=== PATIENT | male | born 1940 | race Caucasian/White ===

== ENCOUNTER 2018-04-08 17:59 | Emergency (ER) | payer MEDICARE, OTHER, SELFPAY ==
[2018-04-08 18:12] VITALS: BP 165/75; PULSE 70; RESP 15; TEMP 36.7; O2SAT 99; BMI 22.8
[2018-04-08 19:04] VITALS: BP 137/86; PULSE 64; RESP 16; O2SAT 99
--- NOTE | 2018-04-09 02:54 | ED_ITS ---
HPI - Extremity Problem General Chief complaint: Extremity Problem,Nontraumatic Stated complaint: states rt arm hurting Time Seen by Provider: 04/08/18 18:19 Source: patient and family Mode of arrival: ambulatory Limitations: no limitations History of Present Illness HPI Narrative: Patient presents with chief complaint of right shoulder pain over the course of the day. He denies any specific injury but states he has been doing significant heavy lifting and wants a work on his lawn and in the garden at home. He denies numbness, tingling or weakness. He states his pain is severe, in the anterior shoulder and worse with range of motion. He denies any other neurologic symptoms such as blurred vision, trouble with speech or facial weakness. MD Complaint: extremity pain Onset (ago): hour(s) Pain Consistency: constant Location: right and upper extremity Severity scale (1-10): 5 Quality: burning, stabbing and aching Radiation: none Relieving factors: immobilization Exacerbating factors: range of motion Associated symptoms: denies other symptoms Related Data Home Medications Medication Instructions Recorded Confirmed calcium acetate 667 mg PO QDAY #0 12/16/16 glucosamine sulfate-msm 1 ea PO #0 12/16/16 hyalur ac-chond sul-colg II-AA 1 ea PO #0 12/16/16 [Hyaluronic Acid (chond-collgn)] levothyroxine 200 mcg PO QAM #0 12/16/16 magnesium oxide 400 mg PO #0 12/16/16 multivitamin [Multiple Vitamins] 1 tab PO QDAY #0 12/16/16 nortriptyline 25 mg PO HS #0 12/16/16 zinc gluconate 50 mg PO #0 12/16/16 Review of Systems Review of Systems All systems reviewed & are unremarkable except as noted in HPI and below Constitutional Denies chills, Denies fever(s), Denies lethargy and Denies weakness Eyes Denies change in vision, Denies eye discharge, Denies irritation and Denies loss of vision ENT Ears, Nose, Mouth, and Throat: Denies change in voice, Denies neck pain and Denies sore throat Cardiovascular Denies chest pain, Denies irregular heart rhythm, Denies lightheadedness, Denies palpitations, Denies dyspnea, Denies dyspnea on exertion and Denies orthopnea Respiratory Denies cough, Denies dyspnea, Denies dyspnea on exertion and Denies wheezing Gastrointestinal Gastrointestinal: Denies abdominal pain, Denies change in bowel habits, Denies diarrhea, Denies nausea and Denies vomiting Genitourinary Denies hematuria, Denies flank pain, Denies urinary incontinence and Denies urinary urgency Musculoskeletal Reports limited range of motion, Denies neck pain and Reports radiating pain into limb Integumentary/Breasts Denies pruritus, Denies erythema, Denies rash and Denies wounds Neurologic Denies confusion, Denies loss of vision and Denies weakness Psychiatric Denies anxiety, Denies confusion, Denies depression, Denies homicidal ideation and Denies suicidal ideation Endocrine Denies palpitations Hematologic/Lymphatic Denies easy bruising Allergic/Immunologic Denies wheezing PFSH Social History Smoking Status: Never smoker Exam Narrative Exam Narrative: 77-year-old male and mild distress, rubbing his right shoulder Initial Vital Signs Initial Vital Signs: Vital Signs Temperature 98.0 F 04/08/18 18:12 Pulse Rate 70 04/08/18 18:12 Respiratory Rate 15 04/08/18 18:12 Blood Pressure 165/75 H 04/08/18 18:12 Pulse Oximetry 99 04/08/18 18:12 Const General: cooperative and well developed Nutritional Appearance: well nourished Orientation: alert, awake, oriented x3 and not confused [facility] Head: normocephalic and atraumatic Ears: external ears normal and TM's normal bilaterally Nose: external nose normal and No nasal discharge Face and sinus: sinuses nontender, face symmetric, no sinus tenderness and No dry mucous membranes Mouth: oral mucosae normal and moist mucous membranes Teeth and gingiva: dentition normal Throat: tonsils normal and uvula midline Eyes General: appearance normal, both eyes and all related structures Eyelids: eyelids normal Conjunctivae: conjunctivae normal Sclera: sclerae normal Pupils: PERRL EOM: EOM intact bilaterally Neck Neck: normal visual inspection, full ROM, no meningeal signs, No midline deformity, No tender and No torticollis Chest Chest: normal inspection of the chest Resp Effort & Inspection: normal respiratory effort, able to speak in complete sentences, no respiratory distress and no use of accessory muscles Auscultation: clear to auscultation bilaterally, no rales, no rhonchi and no wheezes Cardio Rate: regular rate Rhythm: regular rhythm Heart Sounds: no click, no gallops, no murmurs and no rubs Pulses: normal peripheral pulses GI Inspection: non-distended Palpation: soft, no hepatosplenomegaly, No guarding, No pulsatile mass and No tender Auscultation: normal bowel sounds Back/Spine/Pelvis Back: No CVA tenderness Cervical Spine: cervical ROM normal and No pain with cervical ROM Thoracic/Lumbar Spine: thoracic and lumbar spine normal to inspection Neuro General: alert, awake and oriented x3 Cognition: normal cognition Speech: speech normal Gait: normal gait Motor: muscle tone normal throughout Sensory Exam: no sensory deficits noted Extrem Right upper extremity: shoulder/upper arm Details: tenderness and abnormal ROM; no lacerations, no ecchymosis, no penetrating wound, no deformity and no unusual warmth Psych Appearance: grossly normal and well kempt Mental Status: mental status grossly normal Course Vital Signs - 8 hr 04/08/18 19:04 Pulse Rate 64 Respiratory Rate 16 Blood Pressure 137/86 H Pulse Oximetry 99 Discharge Plan Departure Patient Disposition: Home, Self-Care Clinical Impression: Tendinopathy of right shoulder Discharge Date/Time: 04/08/18 19:06 Interventions: ED Discharge Assessment Last Done: 04/08/18 19:04 Instructions: DI for Shoulder Tendinopathy Activity Restrictions/Additional Instructions: *You have been diagnosed with [ shoulder tendinopathy ] *What to do: *Take medications as directed *Follow up with your primary care provider in 2-3 days *Return to ER if you should have any new, worsening or concerning symptoms Prescriptions: No Action levothyroxine 200 MCG tablet 200 mcg PO QAM Qty: 0 RF: 0 multivitamin [Multiple Vitamins] 1 EACH tablet 1 tab PO QDAY Qty: 0 RF: 0 nortriptyline 25 MG capsule 25 mg PO HS Qty: 0 RF: 0 glucosamine sulfate-msm 1 EACH capsule 1 ea PO Qty: 0 RF: 0 hyalur ac-chond sul-colg II-AA [Hyaluronic Acid (chond-collgn)] 1 EACH capsule 1 ea PO Qty: 0 RF: 0 magnesium oxide 400 MG tablet 400 mg PO Qty: 0 RF: 0 calcium acetate 667 MG capsule 667 mg PO QDAY Qty: 0 RF: 0 zinc gluconate 50 MG tablet 50 mg PO Qty: 0 RF: 0
== END 2018-04-08 19:06 | disposition home or self-care (01) ==
PROVIDERS: Emergency Provider Emergency Medicine; PCP Internal Medicine
DX: M67.921 Unspecified disorder of synovium and tendon, right upper arm (principal)
CPT/HCPCS: 99282

== ENCOUNTER → 2018-09-02 10:24 | Outpatient (CLI) | payer MEDICARE, OTHER, SELFPAY ==
--- NOTE | 2018-09-02 10:28 | DI.RAD.S_ITS ---
PROCEDURE: XR TOE RT MIN 2V INDICATIONS: Dropped heavy machinery on middle toe 6 weeks ago and is swollen TECHNIQUE: 3 views of the right toe(s) acquired. COMPARISON: None. FINDINGS: Bones: There is a subacute fracture of the middle phalanx of the 3rd toe seen on one image, with partial healing. No additional fractures are detected. No suspicious lytic or blastic lesions are seen. Soft tissues: No suspicious soft tissue densities. IMPRESSION: Subacute, healing fracture of the middle phalanx 3rd toe. Dictated by: Hilario Peralta M.D. on 09/02/2018 at 9:48 Approved by: Hilario Peralta M.D. on 09/02/2018 at 9:49
== END ==
PROVIDERS: PCP Internal Medicine; Visit Provider Physician Assistant
DX: S92.521D Displaced fracture of middle phalanx of right lesser toe(s), subsequent encounter for fracture with routine healing (principal); M79.674 Pain in right toe(s)
CPT/HCPCS: 73660

== ENCOUNTER → 2018-09-19 14:41 | Outpatient (CLI) | payer MEDICARE, OTHER, SELFPAY ==
--- NOTE | 2018-09-19 14:43 | DI.RAD.S_ITS ---
PROCEDURE: XR TOE RT MIN 2V INDICATIONS: pain in r toe TECHNIQUE: The views of the third toe(s) acquired. COMPARISON: [facility], , XR TOE RT MIN 2V, 09/02/2018, 10:31. FINDINGS: Bones: There is a mildly displaced fracture in the middle phalanx of the third toe. The fracture line remains visible. The alignment appears unchanged. No bridging callus visualized. Soft tissues: No suspicious soft tissue densities. Soft tissue swelling of the [place]. IMPRESSION: Mildly displaced fracture of the third middle phalanx. The fracture line and mild displacement remain visible. No visible bridging callus. Dictated by: Park Echols M.D. on 09/19/2018 at 15:56 Approved by: Park Echols M.D. on 09/19/2018 at 16:03
== END ==
PROVIDERS: PCP Internal Medicine; Visit Provider Physician Assistant
DX: S92.521A Displaced fracture of middle phalanx of right lesser toe(s), initial encounter for closed fracture (principal); M79.674 Pain in right toe(s)
CPT/HCPCS: 73660

== ENCOUNTER → 2018-10-24 07:45 | Outpatient (CLI) | payer MEDICARE, OTHER, SELFPAY ==
[2018-10-24 09:06] LABS: Free T3, Triiodothyronine Free 2.87 pg/mL (2.77-5.27); Free T4, Direct Thyroxine 1.32 ng/dL (0.78-2.19)
[2018-10-24 09:20] LABS: TSH w/ Reflex to FT4 1.05 uIU/mL (0.47-4.68)
[2018-10-24 14:37] LABS: BUN Creatinine Ratio 24.3 (6-22); Blood Urea Nitrogen 17 mg/dL (9-20); Calcium 9.4 mg/dL (8.4-10.2); Carbon Dioxide 28 mmol/L (22-32); Chloride 105 mmol/L (98-107); Cholesterol 191 mg/dL (140-199); Estimated Glomerular Filt Rate > 60.0 mL/min (>60); Glucose 96 mg/dL (80-110); HDL Cholesterol 57 mg/dL (40-60); HEMOLYSIS < 15 (0-50); LDL Cholesterol Calculated 123 mg/dL (<100); Potassium 5.2 mmol/L (3.4-5.1); Sodium 141 mmol/L (137-145); Triglycerides 54 mg/dL (35-150)
== END ==
PROVIDERS: PCP Internal Medicine; Visit Provider Internal Medicine
DX: E03.9 Hypothyroidism, unspecified (principal); N40.0 Benign prostatic hyperplasia without lower urinary tract symptoms; E78.00 Pure hypercholesterolemia, unspecified; I10 Essential (primary) hypertension
CPT/HCPCS: 36415; 80048; 80061; 84153; 84439; 84443; 84481

== ENCOUNTER → 2019-03-07 06:57 | Outpatient (CLI) | payer MEDICARE, OTHER, SELFPAY ==
[2019-03-07 09:42] LABS: Free T3, Triiodothyronine Free 7.42 pg/mL (2.77-5.27); T4 Total Thyroxine 5.57 ug/dL (5.5-11.0)
[2019-03-07 09:55] LABS: Thyroid Stimulating Hormone < 0.02 uIU/mL (0.47-4.68)
== END ==
PROVIDERS: PCP Internal Medicine; Visit Provider Internal Medicine
DX: E03.9 Hypothyroidism, unspecified (principal)
CPT/HCPCS: 36415; 84436; 84443; 84481

== ENCOUNTER → 2019-08-01 07:23 | Outpatient (CLI) | payer MEDICARE, OTHER, SELFPAY ==
[2019-08-01 09:11] LABS: Free T3, Triiodothyronine Free 3.99 pg/mL (2.77-5.27)
[2019-08-01 09:25] LABS: TSH w/ Reflex to FT4 < 0.02 uIU/mL (0.47-4.68)
[2019-08-01 10:35] LABS: Free T4, Direct Thyroxine 1.12 ng/dL (0.78-2.19)
== END ==
PROVIDERS: PCP Internal Medicine; Visit Provider Internal Medicine
DX: E03.9 Hypothyroidism, unspecified (principal)
CPT/HCPCS: 36415; 84439; 84443; 84481

== ENCOUNTER → 2019-08-08 09:47 | Outpatient (CLI) | payer MEDICARE, OTHER, SELFPAY | PROVIDERS: PCP Internal Medicine; Visit Provider Internal Medicine | DX: M85.851 Other specified disorders of bone density and structure, right thigh (principal); E07.9 Disorder of thyroid, unspecified; Z87.891 Personal history of nicotine dependence | CPT/HCPCS: 77080 ==

== ENCOUNTER → 2019-09-14 09:03 | Outpatient (CLI) | payer MEDICARE, OTHER, SELFPAY ==
--- NOTE | 2019-09-14 | DI.ECHO.S_ITS ---
[facility]---------+ [facility] +---------+ : : [id number] : : : : [id number] : : : : Phone: [phone] Echocardiogram Report + + :Name: DALLAS NOVA Study Date: 09/14/2019 Height: 72 in : :[facility] Weight: 165 lb : : Gender: Male BSA: 2.0 m2 : :: 1940 Age: 79 yrs BP: 136/72 mmHg: :Reason For Study: Aortic valve regurgitation : : Performed By: [facility] : :Referring: PEGGY BUTLER : + + Interpretation Summary The left ventricle is normal in size. The ejection fraction is estimated to be 60-65%. There has been no significant change in LV EF since the previous study. The right ventricle is mildly dilated. The right ventricular systolic function is normal. There is moderate aortic regurgitation. Compared to the prior echo study, there has been no change in the severity of aortic regurgitation. Procedure: A two-dimensional transthoracic echocardiogram with color flow and Doppler was performed. The study quality was technically adequate. Prior echo performed on 01/29/17. The patient was in normal sinus rhythm during the exam. The patient had a bundle branch block rhythm during the exam. Left Ventricle: The left ventricle is normal in size. Proximal septal thickening is noted. There is no echo evidence for significant left ventricular outflow tract obstruction. A false chord is noted (normal variant). The ejection fraction is estimated to be 60-65%. There has been no significant change since the previous study. Left ventricular wall motion is normal. MV E/A: 0.92 Med Peak E' Óscar: 5.4 cm/sec E/E' med: 21.2. Right Ventricle: The right ventricle is mildly dilated. The right ventricular systolic function is normal. Atria: The left atrium is mildly dilated. The left atrium has mildly increased in size since the prior echo exam. The right atrium is mildly dilated. The interatrial septum is intact with no evidence for an atrial septal defect. Mitral Valve: The mitral valve leaflets appear mildly thickened, but open well. There is mild to moderate mitral annular calcification. No significant mitral valve stenosis. There is trace mitral regurgitation. Aortic Valve: The aortic valve is trileaflet. There is mild aortic valve sclerosis. There is minimally reduced leaflet mobility. There is no hemodynamically significant valvular aortic stenosis. There is moderate aortic regurgitation. Compared to the prior echo study, there has been no change in the severity of aortic regurgitation. Tricuspid Valve: The tricuspid valve is normal. There is trace tricuspid regurgitation. The right ventricular systolic pressure is estimated to be at least 32 mmHg based on an estimated right atrial pressure of 8 mm Hg. Pulmonic Valve: The pulmonic valve is not well visualized. There is trace pulmonic regurgitation. Great Vessels: The aortic root is normal size. The dimensions of the ascending aorta are normal. The pulmonary artery is normal size. The IVC is of normal diameter and collapses less than 50% with a sniff. This suggests a right atrial pressure of 8 mm Hg. Pericardium/ Pleura There is no pericardial effusion. There is no pleural effusion. MMode/2D Measurements & Calculations LVIDd: 4.8 cm LVOT diam: 2.0 cm LVIDs: 3.2 cm Ao root diam: 3.5 cm FS: 33.6 % Aortic Jxn: 3.3 cm EPSS: 0.43 cm IVSd: 1.2 cm LVPWd: 0.82 cm LV dexter. diameter/BSA (cm/m^2): 2.4 LV sys. diameter/BSA (cm/m^2): 1.6 LA A2 area: 22.7 cm2 RA long axis: 5.4 cm LA A4 area: 24.6 cm2 RA area: 20.2 cm2 LA length (vol): 5.9 cm RA vol: 64.5 ml LA vol: 80.5 ml RA : 32.9 ml/m2 LA vol index: 41.0 ml/m2 TAPSE: 2.1 cm Doppler Measurements & Calculations Ao V2 max: 157.7 cm/sec LVOT Max Óscar: 167.6 cm/sec Ao V2 mean: 121.3 cm/sec LV V1 max P.2 mmHg Ao max P.9 mmHg LV V1 VTI: 40.9 cm Ao mean P.3 mmHg JORGITO(I,D): 3.3 cm2 Ao V2 VTI: 39.7 cm JORGITO(V,D): 3.4 cm2 sev ratio: 1.0 JORGITO indexed to BSA (cm^2/m^2): 1.7 AI P1/2t: 391.5 msec AI dec slope: 277.0 cm/sec2 MV E max óscar: 113.6 cm/sec TR max óscar: 245.6 cm/sec MV A max óscar: 123.0 cm/sec TR max P.1 mmHg MV E/A: 0.92 Med Peak E' Óscar: 5.4 cm/sec E/E' med: 21.2 Lat Peak E' Óscar: 6.9 cm/sec E/E' lat: 16.4 E/e' average: 18.8 MV dec time: 0.36 sec SV(LVOT): 129.7 ml Reading Physician:06:22 PM
== END ==
PROVIDERS: PCP Internal Medicine; Visit Provider Internal Medicine
DX: I35.1 Nonrheumatic aortic (valve) insufficiency (principal); I35.8 Other nonrheumatic aortic valve disorders
CPT/HCPCS: 93306

== ENCOUNTER → 2019-10-26 07:31 | Outpatient (CLI) | payer MEDICARE, OTHER, SELFPAY ==
[2019-10-26 14:06] LABS: White Blood Cell Count 5.9 X10^3/uL (4.5-11.0)
[2019-10-26 14:07] LABS: Hematocrit 42.1 % (41-53); Hemoglobin 14.2 g/dL (13.5-17.5); Mean Corpuscular HGB Conc 33.8 % (30-36); Mean Corpuscular Hemoglobin 32.4 PG (26-34); Neutrophils Percent Auto 51.5 % (50-75); Platelet Count 256 X10^3/uL (150-400); Red Blood Cell Count 4.38 X10^6/uL (4.5-5.9); Red Cell Distribution Width 13.2 % (11.6-14.8)
[2019-10-26 14:08] LABS: Add Manual Diff / Slide Review NO; Basophils Absolute Auto 0 /uL (0-100); Basophils Percent Auto 0.4 % (0-2); Eosinophils Absolute Auto 300 /uL (0-450); Eosinophils Percent Auto 5.2 % (2-4); Lymphocytes Absolute Auto 1900 /uL (1100-4500); Lymphocytes Percent Auto 31.8 % (25-40); Monocytes Absolute Auto 600 /uL (0-900); Monocytes Percent Auto 11.1 % (3-14); Neutrophils Absolute Auto 3000 /uL (1500-7000)
[2019-10-26 14:09] LABS: Chloride 103 mmol/L (98-107); Free T3, Triiodothyronine Free 2.86 pg/mL (2.77-5.27); Free T4, Direct Thyroxine 0.69 ng/dL (0.78-2.19); Potassium 4.7 mmol/L (3.4-5.1); Sodium 139 mmol/L (137-145); Thyroid Stimulating Hormone < 0.02 uIU/mL (0.47-4.68)
[2019-10-26 14:10] LABS: Alanine Aminotransferase 19 IU/L (<50); Alkaline Phosphatase 73 U/L (38-126); Aspartate Aminotransferase 30 IU/L (17-59); BUN Creatinine Ratio 26.7 (6-22); Bilirubin Total 0.3 mg/dL (0.2-1.3); Blood Urea Nitrogen 24 mg/dL (9-20); Calcium 9.4 mg/dL (8.4-10.2); Carbon Dioxide 30 mmol/L (22-32); Estimated Glomerular Filt Rate > 60.0 mL/min (>60); Glucose 94 mg/dL (80-110)
[2019-10-26 14:11] LABS: Albumin Globulin Ratio 1.4 (1.0-2.8); Cholesterol 197 mg/dL (140-199); Globulin 2.8 g/dL (1.7-4.1); HDL Cholesterol 52 mg/dL (40-60); HEMOLYSIS 0 (0-50); LDL Cholesterol Calculated 132 mg/dL (<100); Prostate Specific Antigen 1.21 ng/mL (0.10-4.00); Total Protein 6.8 g/dL (6.3-8.2); Triglycerides 63 mg/dL (35-150)
== END ==
PROVIDERS: PCP Internal Medicine; Visit Provider Internal Medicine
DX: E78.2 Mixed hyperlipidemia (principal); R53.83 Other fatigue; E03.9 Hypothyroidism, unspecified; N40.0 Benign prostatic hyperplasia without lower urinary tract symptoms
CPT/HCPCS: 36415; 80053; 80061; 84153; 84439; 84443; 84481; 85025

== ENCOUNTER → 2020-05-17 10:21 | Outpatient (CLI) | payer MEDICARE, OTHER, SELFPAY ==
--- NOTE | 2020-05-17 10:23 | DI.RAD.S_ITS ---
PROCEDURE: XR WRIST LT MIN 3V INDICATIONS: left wrist pain TECHNIQUE: 4 views of the wrist were acquired. COMPARISON: None. FINDINGS: Bones: Osteoarthritic changes along radial aspect of left wrist are seen most prominent involving 1st CMC joint. No fractures or dislocations. No suspicious bony lesions. Scaphoid view: Scaphoid is intact. Soft tissues: No suspicious soft tissue calcifications. 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 No wrist fracture or dislocation. Dictated by: Anibal Maguire M.D. on 05/17/2020 at 11:05 Approved by: Anibal Maguire M.D. on 05/17/2020 at 11:06
== END ==
PROVIDERS: PCP Internal Medicine; Referring Provider Physician Assistant; Visit Provider Physician Assistant
DX: M25.532 Pain in left wrist (principal); M18.12 Unilateral primary osteoarthritis of first carpometacarpal joint, left hand; M19.032 Primary osteoarthritis, left wrist
CPT/HCPCS: 73110

== ENCOUNTER 2020-09-29 12:13 | Emergency (ER) | payer MEDICARE, OTHER, SELFPAY ==
--- NOTE | 2020-09-29 12:36 | ED.NEUROSD ---
HPI - Neuro Symptoms/Deficit General Chief Complaint: Neuro Symptoms/Deficit Stated Complaint: POSS 3RD TIA Time Seen by Provider: 09/29/20 12:26 Source: patient Mode of arrival: Ambulatory Limitations: no limitations History of Present Illness HPI Narrative: Patient is an 80-year-old male who presents with visual changes now resolved. He thinks that he may have had TIAs in the past and feels like maybe today he had another. At about 45 minutes ago he had some visual changes he calls it ?a worm in both eyes, he had a difficult time describing it lasted about 10 minutes is a man went away. He said this happened to him after he spent on morning driving around trying to find a [employer] tree which he did not find. He had no weakness numbness tingling or speech difficulty. He now says he is back to his normal self and. He previously had visual changes about 3 months ago while he was at [facility] thought nothing of it has since followed up with his primary care provider who his not done any further testing. 3 months ago he was extremely dizzy on a ladder he made it down the ladder (miguelina) thought he had transient episode of vertigo. He has had no further workup before any of these episodes. His symptoms have completely resolved today. Overall is feeling back to his normal self. Onset (ago): minute(s) (45) Related Data Home Medications Medication Instructions Recorded Confirmed calcium acetate(phosphat bind) 667 mg PO QDAY #0 12/16/16 05/20/20 glucosamine sulfate-msm 1 ea PO #0 12/16/16 05/20/20 hyalur ac-chond sul-colg II-AA 1 ea PO #0 12/16/16 05/20/20 [Hyaluronic Acid (chond-collgn)] magnesium oxide 400 mg PO #0 12/16/16 05/20/20 multivitamin [Multiple Vitamins] 1 tab PO QDAY #0 12/16/16 05/20/20 nortriptyline 25 mg PO HS #0 12/16/16 05/20/20 zinc gluconate 50 mg PO #0 12/16/16 05/20/20 levothyroxine 200 mcg tablet 100 mcg PO QAM #0 tab 05/17/20 05/20/20 liothyronine 25 mcg tablet 25 mcg PO DAILY 05/17/20 05/20/20 lisinopril 10 mg tablet 10 mg PO DAILY 05/17/20 05/20/20 Previous Rx's Medication Instructions Recorded triamcinolone acetonide 0.1 % 1 applic TOP TID #80 gram 05/18/20 topical cream Allergies Allergy/AdvReac Type Severity Reaction Status Date / Time No Known Drug Allergies Allergy Verified 05/20/20 10:29 Review of Systems Review of Systems ROS Unobtainable: All systems reviewed & are unremarkable except as noted in HPI and below Constitutional Constitutional: Denies chills, Denies fever(s), Denies lethargy and Denies weakness Eyes Eyes: Reports as per HPI, Denies blurry vision, Denies exophthalmos, Reports change in vision, Reports floaters, Denies loss of peripheral vision, Denies loss of vision and Reports other visual disturbances Cardiovascular Cardiovascular: Denies dyspnea and Denies dyspnea on exertion Respiratory Respiratory: Denies cough, Denies dyspnea, Denies dyspnea on exertion and Denies wheezing Gastrointestinal Gastrointestinal: Denies abdominal pain, Denies change in bowel habits, Denies diarrhea, Denies nausea and Denies vomiting Musculoskeletal Musculoskeletal: Denies back pain and Denies myalgias Integumentary/Breasts Skin/Breast: Denies pruritus, Denies erythema, Denies rash and Denies wounds Neurologic Neurologic: Denies confusion, Denies loss of vision and Denies weakness Psychiatric Psychiatric: Denies confusion Allergic/Immunologic Allergic/Immunologic: Denies wheezing Patient History Medical History CMC arthritis Hypothyroid Social History Smoking Status: Never smoker Smoking Status: Never smoker alcohol intake frequency: a few times a week Exam Initial Vital Signs Initial Vital Signs: Vital Signs Pulse Rate 63 09/29/20 14:00 Respiratory Rate 18 09/29/20 14:00 Blood Pressure 166/77 H 09/29/20 14:00 Pulse Oximetry 100 09/29/20 14:00 GENERAL: Alert well-appearing 80-year-old male and in no acute distress. HEENT: Head atraumatic,EOMI, pupils reactive, face symmetric, moist mucous membranes CARDIOVASCULAR: Regular rate and rhythm without murmurs, rubs or gallops. RESPIRATORY: Breath sounds equal bilaterally, no wheezes rales or rhonchi. ABDOMEN: Soft, nontender. Normoactive bowel sounds all 4 quadrants. No guarding or rebound. EXTREMITIES: Normal range of motion, no clubbing or edema. Neurovascularly intact NEUROLOGICAL: Alert and oriented x4.Normal gait and speech. Cranial nerves II through XII grossly intact. Good [id number], good [id number], strength equal bilaterally, no dysarthria or aphasia, sensation in tact to soft touch bilaterally, no visual changes, no facial droop SKIN: Warm, dry, no laceration, no petechiae, no rashes or lesions. Scores NIH Stroke Scale Level of Conciousness: Alert, keenly responsive Ask month/age: Answers both questions correctly. Open/close eyes, close hand: Performs both tasks correctly Best gaze horizontal: Normal Visual orellana: No visual loss Facial palsy: Normal symetrical movement Left arm drift: No drift for full 10 sec Right arm drift: No drift for full 10 sec Left leg drift: No drift for full 5 sec Right leg drift: No drift for full 5 sec Limb ataxia: Absent Sensory on face/arms/legs: Normal, no sensory loss Best language: No aphasia, normal Dysarthria: Normal Extinction or inattention: No abnormality Total NIH Stroke scale score: 0 Course Orders Ordered: ED Orders 09/29/20 12:37 CT head/brain wo con Stat EKG-12 Lead Stat 09/29/20 12:40 Complete Blood Count AUTO DIFF Stat Comprehensive Metabolic Panel Stat Partial Thromboplastin Time Stat Prothrombin Time INR Stat Troponin & CK Cardiac Panel Stat Vital Signs Vital signs: Vital Signs - 8 hr 09/29/20 14:00 Pulse Rate 63 Respiratory Rate 18 Blood Pressure 166/77 H Pulse Oximetry 100 MDM - Neuro Symptoms/Deficit Lab Data Attestation: I reviewed the patient's lab results. Result diagrams: 09/29/20 12:40 09/29/20 12:40 Labs: Lab Results 09/29/20 09/29/20 09/29/20 Range/Units 12:40 12:40 12:40 WBC 6.3 (4.5-11.0) X10^3/uL RBC 4.10 L (4.5-5.9) X10^6/uL Hgb 13.3 L (13.5-17.5) g/dL Hct 39.4 L (41-53) % MCV 96.1 (80-100) fL MCH 32.4 (26-34) PG MCHC 33.7 (30-36) % RDW 12.8 (11.6-14.8) % Plt Count 226 (150-400) X10^3/uL Neut % (Auto) 62.0 (50-75) % Lymph % (Auto) 24.7 L (25-40) % Carter % (Auto) 9.6 (3-14) % Eos % (Auto) 3.3 (2-4) % Baso % (Auto) 0.4 (0-2) % Neut # (Auto) 3900 (8621-5685) /uL Lymph # (Auto) 1600 (3159-7067) /uL Carter # (Auto) 600 (0-900) /uL Eos # (Auto) 200 (0-450) /uL Baso # (Auto) 0 (0-100) /uL PT 11.6 (10.1-12.7) SECONDS INR 1.0 (0.9-1.3) APTT 30 (26.4-36.2) SECONDS Sodium 138 (137-145) mmol/L Potassium 4.1 (3.4-5.1) mmol/L Chloride 105 (98-107) mmol/L Carbon Dioxide 31 (22-32) mmol/L BUN 16 (9-20) mg/dL Creatinine 0.56 L (0.66-1.25) mg/dL Estimated GFR > 60.0 (>60) mL/min BUN/Creatinine Ratio 28.6 H (6-22) Glucose 118 H (80-110) mg/dL Calcium 9.1 (8.4-10.2) mg/dL Total Bilirubin 0.4 (0.2-1.3) mg/dL AST 28 (17-59) IU/L ALT 20 (<50) IU/L Alkaline Phosphatase 66 (38-126) U/L Total Creatine Kinase 34 L (55-170) U/L CK-MB (CK-2) TNP CK-MB (CK-2) Rel Index TNP Troponin I < 0.012 (0.01-0.034) ng/mL Total Protein 6.7 (6.3-8.2) g/dL Albumin 3.8 (3.5-5.0) g/dL Globulin 2.9 (1.7-4.1) g/dL Albumin/Globulin Ratio 1.3 (1.0-2.8) Imaging Data CT scan - head: Radiologist's Impression: /BRAIN WO CON INDICATIONS: Visual changes now resolved TECHNIQUE: Noncontrast 4.5 mm thick angled axial sections acquired from the foramen magnum to the vertex, with coronal and sagittal reformats. For radiation dose reduction, the following was used: automated exposure control, adjustment of mA and/or kV according to patient size. COMPARISON: None. FINDINGS: Image quality: Excellent. CSF spaces: Basal cisterns are patent. No extra-axial fluid collections. Ventricles are normal in size and shape. Brain: No midline shift. No intracranial masses or hemorrhage. No area of hypodensity in a large vascular distribution to suggest acute infarction. Minimal periventricular hypodensity consistent with chronic microvascular ischemic change. Age-related parenchymal loss. Skull and face: Calvarium and visualized facial bones are intact, without suspicious lesions. Sinuses: Visualized sinuses and mastoids are clear. IMPRESSION: No acute intracranial abnormality demonstrated. Mild chronic microvascular ischemic disease. Dictated by: Yadiel Conner M.D. on 09/29/2020 at 12:01 ECG Data Attestation: I personally reviewed and interpreted this ECG as follows: Prior ECG tracings: available for review Interpretation: Normal sinus rhythm rate 63 p.r. interval 192 QRS 140 QTC 465 right bundle-branch block noted similar to previous EKGs no ST changes MDM Narrative Medical decision making narrative: Patient's symptoms today of floaters in his eyes or visual disturbances are not consistent with stroke or TIA. He previously had other visual changes and then an episode of vertigo also not convincing for TIA. I have offered him to stay in the hospital for further workup evaluation and monitoring however due to his who has severe dementia he would like to get home. At this time he has no focal deficits and feels comfortable going home. I discussed with him that if his symptoms should return to the ED Discharge Plan Departure Patient Disposition: Home Clinical Impression: Visual floaters Qualifiers: Laterality: bilateral Qualified Code(s): H43.393 - Other vitreous opacities, bilateral Instructions: DI for Transient Ischemic Attack, DI for Eye Floaters Activity Restrictions/Additional Instructions: *You have been diagnosed with visual floaters *What to do: You may still require further testing with her primary care provider. Difficult to say exactly what happened. If her symptoms return please call 911 and return to the ED immediately *Continue to take medications as directed *Follow up with your primary care provider in 2-3 days *Return to ER if you should have visual changes, weakness numbness tingling, facial droop difficulty speaking chest pain palpitations dizziness or any new, worsening or concerning symptoms Prescriptions: No Action lisinopril 10 mg tablet 10 mg PO DAILY RF: 0 liothyronine [Cytomel] 25 mcg tablet 25 mcg PO DAILY RF: 0 triamcinolone acetonide 0.1 % cream 1 applic TOP TID Qty: 80 RF: 0 multivitamin [Multiple Vitamins] 1 EACH tablet 1 tab PO QDAY Qty: 0 RF: 0 nortriptyline 25 MG capsule 25 mg PO HS Qty: 0 RF: 0 glucosamine sulfate-msm 1 EACH capsule 1 ea PO Qty: 0 RF: 0 hyalur ac-chond sul-colg II-AA [Hyaluronic Acid (chond-collgn)] 1 EACH capsule 1 ea PO Qty: 0 RF: 0 magnesium oxide 400 MG tablet 400 mg PO Qty: 0 RF: 0 calcium acetate(phosphat bind) 667 MG capsule 667 mg PO QDAY Qty: 0 RF: 0 zinc gluconate 50 MG tablet 50 mg PO Qty: 0 RF: 0 levothyroxine 200 mcg tablet 100 mcg PO QAM Qty: 0 RF: 0 Referrals: Aguilar Mc MD [Primary Care Provider] -
[2020-09-29 12:52] LABS: Add Manual Diff / Slide Review NO; Basophils Absolute Auto 0 /uL (0-100); Basophils Percent Auto 0.4 % (0-2); Eosinophils Absolute Auto 200 /uL (0-450); Eosinophils Percent Auto 3.3 % (2-4); Hematocrit 39.4 % (41-53); Hemoglobin 13.3 g/dL (13.5-17.5); Lymphocytes Absolute Auto 1600 /uL (1100-4500); Lymphocytes Percent Auto 24.7 % (25-40); Mean Corpuscular HGB Conc 33.7 % (30-36); Mean Corpuscular Hemoglobin 32.4 PG (26-34); Mean Corpuscular Volume 96.1 fL (80-100); Monocytes Absolute Auto 600 /uL (0-900); Monocytes Percent Auto 9.6 % (3-14); Neutrophils Absolute Auto 3900 /uL (1500-7000); Platelet Count 226 X10^3/uL (150-400); Red Cell Distribution Width 12.8 % (11.6-14.8); White Blood Cell Count 6.3 X10^3/uL (4.5-11.0)
[2020-09-29 12:58] LABS: Prothrombin Time 11.6 SECONDS (10.1-12.7)
[2020-09-29 13:00] LABS: PTT Partial Thromboplastin Tim 30 SECONDS (26.4-36.2)
[2020-09-29 13:02] LABS: Alanine Aminotransferase 20 IU/L (<50); Albumin 3.8 g/dL (3.5-5.0); Albumin Globulin Ratio 1.3 (1.0-2.8); Alkaline Phosphatase 66 U/L (38-126); Aspartate Aminotransferase 28 IU/L (17-59); BUN Creatinine Ratio 28.6 (6-22); Bilirubin Total 0.4 mg/dL (0.2-1.3); Blood Urea Nitrogen 16 mg/dL (9-20); Calcium 9.1 mg/dL (8.4-10.2); Carbon Dioxide 31 mmol/L (22-32); Chloride 105 mmol/L (98-107); Creatine Kinase 34 U/L (55-170); Estimated Glomerular Filt Rate > 60.0 mL/min (>60); Globulin 2.9 g/dL (1.7-4.1); Glucose 118 mg/dL (80-110); HEMOLYSIS < 15 (0-50); Potassium 4.1 mmol/L (3.4-5.1); Sodium 138 mmol/L (137-145); Total Protein 6.7 g/dL (6.3-8.2)
[2020-09-29 13:15] LABS: Troponin I < 0.012 ng/mL (0.01-0.034)
[2020-09-29 14:00] VITALS: BP 166/77; PULSE 63; RESP 18; O2SAT 100
== END 2020-09-29 14:20 | disposition home or self-care (01) ==
PROVIDERS: Emergency Provider Emergency Medicine; PCP Internal Medicine
DX: H43.393 Other vitreous opacities, bilateral (principal); E03.9 Hypothyroidism, unspecified; R42 Dizziness and giddiness; R07.9 Chest pain, unspecified
CPT/HCPCS: 36415; 70450; 80053; 82550; 84484; 85025; 85610; 85730; 93005; 99281; 99284

== ENCOUNTER → 2020-10-01 19:33 | Outpatient (ROUT) | payer MEDICARE, OTHER, SELFPAY ==
[2020-10-01 20:17] LABS: Cholesterol 135 mg/dL (140-199); HDL Cholesterol 43 mg/dL (40-60); LDL Cholesterol Calculated 79 mg/dL (<100); Triglycerides 66 mg/dL (35-150)
[2020-10-01 20:32] LABS: Prostate Specific Antigen 1.13 ng/mL (0.10-4.00)
[2020-10-01 20:35] LABS: Free T3, Triiodothyronine Free 5.35 pg/mL (2.77-5.27); T4 Total Thyroxine 4.83 ug/dL (5.5-11.0)
[2020-10-01 20:51] LABS: Thyroid Stimulating Hormone < 0.015 uIU/mL (0.47-4.68)
[2020-10-03 06:36] LABS: Triiodothyronine T3 Total 161 ng/dL (71-180)
== END ==
PROVIDERS: PCP Internal Medicine; Visit Provider Internal Medicine
DX: N40.0 Benign prostatic hyperplasia without lower urinary tract symptoms (principal); E03.9 Hypothyroidism, unspecified; E78.2 Mixed hyperlipidemia
CPT/HCPCS: 80061; 84153; 84436; 84443; 84480; 84481

== ENCOUNTER → 2021-06-02 14:09 | Outpatient (CLI) | payer MEDICARE, OTHER, SELFPAY ==
[2021-06-02 15:54] LABS: COVID19 -Nasal RAPID Negative (Negative)
== END ==
PROVIDERS: PCP Internal Medicine; Visit Provider Nurse Practitioner
DX: Z20.822 Contact with and (suspected) exposure to COVID-19 (principal)
CPT/HCPCS: 87635; C9803

== ENCOUNTER 2021-06-03 09:54 | Day surgery (SDC) | payer MEDICARE, OTHER, SELFPAY ==
--- NOTE | 2021-06-03 | PATH_ITS ---
[facility] Accession Number: [id number] . 01 Material submitted: . colon - ASCENDING POLYP . 02 Diagnosis: Ascending Polyp: Sessile serrated adenoma. MRV 06/05/2021 1016 Local . 02 Electronically signed: . Iva May MD, Pathologist NPI- [id number] . 01 Gross description: . ASCENDING POLYP: Received in formalin is 1 fragment(s) of garcia, soft tissue measuring 0.6 x 0.4 x 0.3 cm submitted entirely in 1 cassette(s) /JORGITO 06/04/2021 0403 Local . 02 Pathologist provided ICD-10: K63.5, R19.5 . 02 CPT . 856903 Performed at: [address] [facility] [address] [place] [id number] MD Jasper Atkinson MD Phone: [phone] Performed at: 02 [facility] [address] [place], [place] [id number] MD Charmaine Stover MD Phone: [phone]
[2021-06-03 10:18] VITALS: BP 142/86; PULSE 96; RESP 14; TEMP 36.3; O2SAT 100; BMI 22.4
[2021-06-03] MEDS: SODIUM CHLORIDE 0.9% 1,000 ML 84 ML IV (10:28)
--- NOTE | 2021-06-03 10:50 | PM.HP.1 ---
History of Present Illness History of Present Illness Date Patient Seen: 06/03/21 Time Patient Seen: 10:50 Chief complaint: LAC Patient History Medical History CMC arthritis Hypothyroid Family & Social History Social History: household members spouse Tobacco & Substance use: Smoking Status Never smoker alcohol intake frequency a few times a week Substance Use Type does not use Meds Home Medications and Allergies Home Medications Medication Instructions Recorded Confirmed Type calcium acetate(phosphat bind) 667 667 mg PO QDAY #0 12/16/16 06/03/21 History mg capsule glucosamine 1 ea PO DAILY #0 12/16/16 06/03/21 History sulfate-methylsulfonylmethane 250 mg-250 mg capsule hyalur ac-chond sul-colg II-AA 40 1 ea PO DAILY #0 12/16/16 06/03/21 History mg-80 mg-400 mg capsule (Hyaluronic Acid(with chondroitin-collagenII)) magnesium oxide 400 mg (241.3 mg 400 mg PO DAILY #0 12/16/16 06/03/21 History magnesium) tablet multivitamin (Multiple Vitamins) 1 tab PO QDAY #0 12/16/16 06/03/21 History nortriptyline 25 mg capsule 25 mg PO HS #0 12/16/16 06/03/21 History zinc gluconate 50 mg tablet 50 mg PO DAILY #0 12/16/16 06/03/21 History levothyroxine 200 mcg tablet 100 mcg PO QAM #0 tab 05/17/20 06/03/21 History liothyronine 25 mcg tablet 25 mcg PO DAILY 05/17/20 06/03/21 History (Cytomel) lisinopril 10 mg tablet 10 mg PO DAILY 05/17/20 06/03/21 History triamcinolone acetonide 0.1 % 1 applic TOP TID #80 gram 05/18/20 06/03/21 Rx topical cream Allergies Allergy/AdvReac Type Severity Reaction Status Date / Time No Known Drug Allergies Allergy Verified 06/03/21 10:29 Review of Systems Review of Systems ROS: Yes All systems reviewed with the patient and are negative except as otherwise documented Exam Vital Signs (past 8 hours): - 06/03/21 10:18 Temperature 97.4 F L Pulse Rate 96 H Respiratory Rate 14 Blood Pressure 142/86 H Pulse Oximetry 100 Oxygen Delivery Method Room Air Const General: cooperative and comfortable Orientation: alert HENMT Head: normocephalic Ears: external ears normal Nose: external nose normal Face and sinus: normal facial exam Mouth: oral mucosae normal Eyes General: appearance normal, both eyes and all related structures Neck Neck: normal visual inspection Chest Chest: normal inspection of the chest Resp Effort & Inspection: normal respiratory effort Auscultation: clear to auscultation bilaterally Cardio Rate: regular rate Rhythm: regular rhythm Heart Sounds: murmur GI Inspection: normal to inspection Palpation: soft and No tender Auscultation: normal bowel sounds Skin General: no rashes or lesions noted and No jaundice Neuro General: patient alert and moves all extremities Cognition: normal cognition Speech: speech normal Extrem General: no pedal edema Psych Appearance: grossly normal Assessment & Plan Assessment & Plan narrative: 80-year-old male with a positive fit. Colonoscopy is planned for today.
--- NOTE | 2021-06-03 10:52 | PM.PREOP ---
Pre-operative Note COVID-19 COVID-19 status: Negative Result date/Date tested (Pos, Neg/Pending): 06/02/21 Interval Note History & Physical reviewed/Exam performed by Physician: Yes Changes to H&P: No H&P completed within 30 days and has changed as indicated here:: Today ASA Class (for procedural sedation): II
[2021-06-03] MEDS: fentaNYL 250 MCG/5 ML INJ IV (11:02)
[2021-06-03] MEDS: MIDAZOLAM 5 MG/5 ML VIAL IV (11:02)
--- NOTE | 2021-06-03 11:19 | PM.OP.ENDO ---
Operative Date/Time/Diagnoses Date of procedure: 06/03/21 Time of procedure: 11:19 Pre-op diagnosis: Positive fit Post-op diagnosis: same Procedure & Clinicians Study performed: Colonoscopy with hot snare polypectomy Same procedure as scheduled: Yes Indications: Positive fit Surgeon: Ray Mak Procedure Notes SCOAP/Timeout: Done Procedure in detail: After the risks and benefits were explained, written and verbal informed consent was obtained. The patient was brought into the procedure room and placed into the left lateral decubitus position. Conscious sedation medication was applied as per nursing documentation. Digital rectal examination was accomplished. The scope was introduced into the patient and advanced under direct visualization to the cecum as identified by the appendiceal orifice and ileocecal valve. The scope was slowly withdrawn to carefully examine the mucosa for any defects or lesions. Comprehensive imaging was accomplished throughout the rectum including the dentate line. The colon was decompressed, the scope was then removed from the patient who tolerated the procedure well. 3 mg Versed 75 mcg fentanyl Bowel prep adequate Adult colonoscope Scope withdrawal time: 11 minutes Sedation minutes: 24 Complications: none Impression: There was extensive diverticulosis through the sigmoid colon. I did not see any evidence of colitis or proctitis no vascular bleeding pathology noted. There was a 6-7 mm sessile polyp in the ascending colon removed with hot snare polypectomy. With digital rectal examination and direct rectal imaging the prostate felt and appeared enlarged. There was evidence of grade 2-3 internal hemorrhoids. Endoscopic diagnosis 1. Colon polyp 2. Diverticulosis 3. Hemorrhoids 4. Enlarged prostate Post-procedure Plan for aftercare: 1. Await histopathology 2. Follow up in primary care for ongoing prostate health. Other than the internal hemorrhoids no obvious source for the positive fit was identified today. Disposition: PACU
[2021-06-03 11:24] VITALS: BP 131/71; PULSE 84; RESP 21; TEMP 36.9; O2SAT 97
[2021-06-03 11:29] VITALS: BP 131/75; PULSE 82; RESP 15; O2SAT 95
[2021-06-03 11:34] VITALS: BP 136/77; PULSE 82; RESP 20; TEMP 36.7; O2SAT 97
--- NOTE | 2021-06-03 11:39 | SUR.PHASEI ---
SBAR report to Karen Rn at bedside who is transfering patient to Phase II/OPD. Pt awake, alert, tolerating juice.
[2021-06-03 11:40] VITALS: BP 139/78; PULSE 83; RESP 22; TEMP 36.7; O2SAT 96
== END 2021-06-03 11:58 | disposition home or self-care (01) ==
PROVIDERS: PCP Internal Medicine; Referring Provider Internal Medicine Gastroenterology; Visit Provider Internal Medicine Gastroenterology
PROC: 0DJD8ZZ Inspection of Lower Intestinal Tract, Via Natural or Artificial Opening Endoscopic (ICD-10-PCS; CPT 45378; principal; 2021-06-03 11:00)
DX: R19.5 Other fecal abnormalities (principal); K57.30 Diverticulosis of large intestine without perforation or abscess without bleeding; K64.1 Second degree hemorrhoids; N40.0 Benign prostatic hyperplasia without lower urinary tract symptoms
CPT/HCPCS: 45385; J2250; J3010

== ENCOUNTER → 2021-06-24 07:10 | Outpatient (CLI) | payer MEDICARE, OTHER, SELFPAY ==
[2021-06-24 08:40] LABS: Hematocrit 38.7 % (41-53); Hemoglobin 12.9 g/dL (13.5-17.5); Mean Corpuscular HGB Conc 33.4 % (30-36); Mean Corpuscular Hemoglobin 31.8 PG (26-34); Mean Corpuscular Volume 95.1 fL (80-100); Platelet Count 249 X10^3/uL (150-400); Red Blood Cell Count 4.06 X10^6/uL (4.5-5.9); Red Cell Distribution Width 13.2 % (11.6-14.8); White Blood Cell Count 5.4 X10^3/uL (4.5-11.0)
[2021-06-24 09:32] LABS: Free T3, Triiodothyronine Free 2.63 pg/mL (2.77-5.27); Free T4, Direct Thyroxine 1.38 ng/dL (0.78-2.19)
[2021-06-24 09:45] LABS: Thyroid Stimulating Hormone 0.041 uIU/mL (0.47-4.68)
[2021-06-25 08:53] LABS: Triiodothyronine T3 Total 72 ng/dL (71-180)
== END ==
PROVIDERS: PCP Internal Medicine; Referring Provider Internal Medicine; Visit Provider Internal Medicine
DX: E03.9 Hypothyroidism, unspecified (principal); R19.5 Other fecal abnormalities; N40.0 Benign prostatic hyperplasia without lower urinary tract symptoms
CPT/HCPCS: 36415; 84153; 84154; 84439; 84443; 84480; 84481; 85027

== ENCOUNTER 2022-06-06 10:44 | Emergency (ER) | payer OTHER, SELFPAY ==
[2022-06-06] VITALS (14 sets, daily range): BP systolic 147–178; BP diastolic 64–81; PULSE 58–65; RESP 12–29; TEMP 36.6; O2SAT 98–100; BMI 21.7
--- NOTE | 2022-06-06 11:11 | DI.RAD.S_ITS ---
PROCEDURE: XR CHEST 1V INDICATIONS: chest pain TECHNIQUE: One view of the chest was acquired. COMPARISON: [facility], CR, XR CHEST 1 VIEW, 05/25/2022, 16:42. [facility], , CHEST 1 VIEW, 10/19/2015, 15:24. FINDINGS: Surgical changes and devices: None. Lungs and pleura: On this semiupright portable chest examination, no large pneumothorax or large pleural effusions are seen. No focal infiltrates are seen. Mediastinum: The cardiac contours are within normal limits. The aorta demonstrates calcification and tortuosity. Bones and chest wall: Age-appropriate bony degenerative changes are seen. No suspicious bony lesions. Overlying soft tissues appear unremarkable. IMPRESSION: Limited portable chest examination, without a significant cardiopulmonary abnormality identified. Dictated by: Hilario Peralta M.D. on 06/06/2022 at 10:22 Approved by: Hilario Peralta M.D. on 06/06/2022 at 10:22
--- NOTE | 2022-06-06 11:23 | ED.DIZZY ---
HPI - Dizziness General Chief Complaint: Dizziness Stated Complaint: dizzy, lightheaded, just off heart monitor Time Seen by Provider: 06/06/22 11:22 Source: patient and family (friend at bedside) Mode of arrival: Ambulatory Limitations: no limitations History of Present Illness HPI Narrative: This is an 81-year-old male with history of hypertension, hypothyroidism and recently diagnosed with ?leaky aortic valve in February patient's unsure if it is a stenosis, bicuspid valve but states he is had a known heart murmur for many years. Patient states he is had dizziness, shortness of breath and cramping in his legs when walking [facility] which has some pretty significant hills and is to miles. He ended up at the [facility] in [place] had stress test with EKG which was negative, echo which showed ?a leaky aortic valve? and was told they would follow it as needed, and had ZIO patch 1-1/2 weeks ago which he [facility] not [facility]. Patient states he is had continued lightheadedness and dizziness he describes it as worsened when he goes particularly from bending to standing, but states it is sort of intermittent. 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 He does not ever have when he is lying flat it is usually when he is upright. Frequencies increased a little bit he has not had any syncope or near syncope. He denies headaches, no acute vision changes he is had some mild blurriness in his right eye after cataract surgery but no regular persistent diplopia. Denies any chest pain or pressure, no acute shortness of breath. He is no longer walking [place] but walks 3 miles flat daily still no nausea or vomiting, no diarrhea constipation, no urinary symptoms. No swelling in extremities. He describes occasional tingling in his arms left versus right sometimes both sides but no other numbness or tingling of other extremities or face, no weakness, no speech or facial droop. Patient states he is on thyroid supplementation, he was on lisinopril, he would half his dose secondary to cough his primary care physician the [facility] changed him to amlodipine in February. He has a remote history of migraines but has not had some persistently. Had cataract surgery bilaterally, right knee surgery 3-4 years ago denies other surgical interventions. No allergies. Remote use of tobacco, 1-2 glasses of alcohol daily, no illicit. [facility]. Patient states he has been able to shovel truck bed full of gravel without issue in the last several days and even this morning. Does note he was seen at the emergency department at [facility] about a week ago they discussed keeping him for observation for echo but he had to leave his had a fall. Related Data Home Medications Medication Instructions Recorded Confirmed calcium acetate(phosphat bind) 667 667 mg PO QDAY ##0 12/16/16 06/03/21 mg capsule glucosamine 1 ea PO DAILY ##0 12/16/16 06/03/21 sulfate-methylsulfonylmethane 250 mg-250 mg capsule hyalur ac-chond sul-colg II-AA 40 1 ea PO DAILY ##0 12/16/16 06/03/21 mg-80 mg-400 mg capsule (Hyaluronic Acid(with chondroitin-collagenII)) magnesium oxide 400 mg (241.3 mg 400 mg PO DAILY ##0 12/16/16 06/03/21 magnesium) tablet multivitamin (Multiple Vitamins 1 tab PO QDAY ##0 12/16/16 06/03/21 tablet) nortriptyline 25 mg capsule 25 mg PO HS ##0 12/16/16 06/03/21 zinc gluconate 50 mg tablet 50 mg PO DAILY ##0 12/16/16 06/03/21 levothyroxine 200 mcg tablet 100 mcg PO QAM #0 tabs 05/17/20 06/03/21 liothyronine 25 mcg tablet 25 mcg PO DAILY 05/17/20 06/03/21 (Cytomel) lisinopril 10 mg tablet 10 mg PO DAILY 05/17/20 06/03/21 Previous Rx's Medication Instructions Recorded triamcinolone acetonide 0.1 % 1 applic topical TID #80 grams 05/18/20 topical cream Allergies Allergy/AdvReac Type Severity Reaction Status Date / Time No Known Drug Allergies Allergy Verified 06/06/22 11:00 Review of Systems Review of Systems ROS Unobtainable: All systems reviewed & are unremarkable except as noted in HPI and below Patient History Medical History CMC arthritis Hypothyroid Social History household members: spouse Smoking Status: Never smoker Smoking Status: Never smoker alcohol intake frequency: 0-2 drinks per day Substance Use Type: does not use Exam Narrative Exam Narrative: GEN: well nourished, well appearing male, alert and oriented x 3, patient appears to be in mild distress. HEENT: Atraumatic, pupils are equal round reactive to light, extraocular movements are intact, no nystagmus, nares are clear, TMs are clear with no fluid, there is no conjunctival pallor. Throat is clear without any exudates, erythema, tonsillar enlargement or uvular deviation, no facial droop. HEART: Regular rate and rhythm with 3/6 systolic ejection murmur, clicks, rubs. Pulses are equal in upper extremities LUNGS:Lungs clear to auscultation, no wheezes, rales, crackles, chest moves symmetrically, no tachypnea or accessory muscle use ABD:bowel sounds normal, soft, non-tender, no guarding, rebound, rigidity, no masses noted, no hepatosplenomegaly :No CVA tenderness MSCL: Non-tender, no muscle atrophy, muscles strength 5/5 upper and lower extremities, full range of motion, normal gait NEURO:CN 2-12 intact, sensation normal. finger nose finger test normal, heel dueñas test normal, romberg normal SKIN: No rash, erythema or other skin changes Initial Vital Signs Initial Vital Signs: Vital Signs Temperature 97.9 F 06/06/22 11:00 Pulse Rate 64 06/06/22 11:00 Respiratory Rate 15 06/06/22 11:00 Blood Pressure 175/78 H 06/06/22 11:00 Pulse Oximetry 98 06/06/22 11:00 Oxygen Delivery Method 06/06/22 11:00 Course Orders Ordered: ED Orders 06/06/22 10:53 EKG-12 Lead Routine 06/06/22 10:57 BNP [NT-proBNP (BNP-Adult 18+)] Stat Complete Blood Count AUTO DIFF Stat Comprehensive Metabolic Panel Stat Lipase Stat Magnesium Stat Troponin & CK Cardiac Panel Stat 06/06/22 11:11 XR chest 1V Stat 06/06/22 11:30 TSH [Thyroid Stimulating Hormone] Stat 06/06/22 11:48 CT head/brain wo con Stat Vital Signs Vital signs: Vital Signs - 8 hr 06/06/22 11:00 06/06/22 11:05 06/06/22 11:15 Temperature 97.9 F Pulse Rate 64 59 L Pulse Rate [Orthostatic Lying] 62 Pulse Rate [Orthostatic Sitting] 63 Pulse Rate [Orthostatic Standing] 59 L Respiratory Rate 15 20 Blood Pressure 175/78 H Blood Pressure [Orthostatic Lying] 158/72 H Blood Pressure [Orthostatic Sitting] 154/69 H Blood Pressure [Orthostatic Standing] 148/64 H Pulse Oximetry 98 99 Oxygen Delivery Method Room Air 06/06/22 11:30 06/06/22 11:30 06/06/22 12:00 Temperature Pulse Rate 58 L 58 L Pulse Rate [Orthostatic Lying] Pulse Rate [Orthostatic Sitting] Pulse Rate [Orthostatic Standing] Respiratory Rate 22 29 H Blood Pressure 172/77 H Blood Pressure [Orthostatic Lying] Blood Pressure [Orthostatic Sitting] Blood Pressure [Orthostatic Standing] Pulse Oximetry 100 100 Oxygen Delivery Method 06/06/22 12:01 06/06/22 12:01 06/06/22 12:27 Temperature Pulse Rate 58 L Pulse Rate [Orthostatic Lying] Pulse Rate [Orthostatic Sitting] Pulse Rate [Orthostatic Standing] Respiratory Rate 20 Blood Pressure 147/71 H 172/81 H Blood Pressure [Orthostatic Lying] Blood Pressure [Orthostatic Sitting] Blood Pressure [Orthostatic Standing] Pulse Oximetry 100 Oxygen Delivery Method 06/06/22 12:27 06/06/22 12:30 06/06/22 12:30 Temperature Pulse Rate 58 L 61 Pulse Rate [Orthostatic Lying] Pulse Rate [Orthostatic Sitting] Pulse Rate [Orthostatic Standing] Respiratory Rate 14 15 Blood Pressure 166/77 H Blood Pressure [Orthostatic Lying] Blood Pressure [Orthostatic Sitting] Blood Pressure [Orthostatic Standing] Pulse Oximetry 99 99 Oxygen Delivery Method 06/06/22 13:00 06/06/22 13:00 06/06/22 13:30 Temperature Pulse Rate 61 Pulse Rate [Orthostatic Lying] Pulse Rate [Orthostatic Sitting] Pulse Rate [Orthostatic Standing] Respiratory Rate 12 Blood Pressure 178/79 H 158/73 H Blood Pressure [Orthostatic Lying] Blood Pressure [Orthostatic Sitting] Blood Pressure [Orthostatic Standing] Pulse Oximetry 99 Oxygen Delivery Method 06/06/22 13:30 06/06/22 14:00 06/06/22 14:00 Temperature Pulse Rate 60 62 Pulse Rate [Orthostatic Lying] Pulse Rate [Orthostatic Sitting] Pulse Rate [Orthostatic Standing] Respiratory Rate 13 13 Blood Pressure 165/77 H Blood Pressure [Orthostatic Lying] Blood Pressure [Orthostatic Sitting] Blood Pressure [Orthostatic Standing] Pulse Oximetry 99 99 Oxygen Delivery Method Room Air 06/06/22 14:30 06/06/22 14:30 06/06/22 15:00 Temperature Pulse Rate 64 64 Pulse Rate [Orthostatic Lying] Pulse Rate [Orthostatic Sitting] Pulse Rate [Orthostatic Standing] Respiratory Rate 15 14 Blood Pressure 150/70 H Blood Pressure [Orthostatic Lying] Blood Pressure [Orthostatic Sitting] Blood Pressure [Orthostatic Standing] Pulse Oximetry 100 100 Oxygen Delivery Method 06/06/22 15:18 06/06/22 15:18 Temperature Pulse Rate 65 Pulse Rate [Orthostatic Lying] Pulse Rate [Orthostatic Sitting] Pulse Rate [Orthostatic Standing] Respiratory Rate 20 Blood Pressure 168/76 H Blood Pressure [Orthostatic Lying] Blood Pressure [Orthostatic Sitting] Blood Pressure [Orthostatic Standing] Pulse Oximetry 100 Oxygen Delivery Method MDM - Dizziness Lab Data Result diagrams: 06/06/22 10:57 06/06/22 10:57 Labs: Lab Results 06/06/22 06/06/22 06/06/22 Range/Units 10:57 10:57 10:57 WBC 5.7 (4.5-11.0) X10^3/uL RBC 4.29 L (4.5-5.9) X10^6/uL Hgb 13.9 (13.5-17.5) g/dL Hct 40.6 L (41-53) % MCV 94.7 (80-100) fL MCH 32.3 (26-34) PG MCHC 34.1 (30-36) % RDW 13.1 (11.6-14.8) % Plt Count 218 (150-400) X10^3/uL Neut % (Auto) 55.4 (50-75) % Lymph % (Auto) 25.6 (25-40) % Isabella % (Auto) 11.9 (3-14) % Eos % (Auto) 5.2 H (2-4) % Baso % (Auto) 1.9 (0-2) % Neut # (Auto) 3100 (4404-6452) /uL Lymph # (Auto) 1500 (4013-0490) /uL Isabella # (Auto) 700 (0-900) /uL Eos # (Auto) 300 (0-450) /uL Baso # (Auto) 100 (0-100) /uL Sodium 138 (137-145) mmol/L Potassium 4.3 (3.4-5.1) mmol/L Chloride 105 (98-107) mmol/L Carbon Dioxide 28 (22-32) mmol/L BUN 14 (9-20) mg/dL Creatinine 0.62 L (0.66-1.25) mg/dL Estimated GFR > 60 (>60) mL/min BUN/Creatinine Ratio 22.6 H (6-22) Glucose 95 (80-110) mg/dL Calcium 9.0 (8.4-10.2) mg/dL Magnesium 2.1 (1.6-2.3) mg/dL Total Bilirubin 0.7 (0.2-1.3) mg/dL AST 30 (17-59) IU/L ALT 19 (<50) IU/L Alkaline Phosphatase 66 (38-126) U/L Total Creatine Kinase 50 L (55-170) U/L CK-MB (CK-2) TNP CK-MB (CK-2) Rel Index TNP Troponin I < 0.012 (0.01-0.034) ng/mL NT-Pro-B Natriuret Pep 578 H (<450) pg/mL Total Protein 7.1 (6.3-8.2) g/dL Albumin 4.0 (3.5-5.0) g/dL Globulin 3.1 (1.7-4.1) g/dL Albumin/Globulin Ratio 1.3 (1.0-2.8) Lipase 43 (23-300) U/L TSH (0.47-4.68) uIU/mL 06/06/22 Range/Units 11:30 WBC (4.5-11.0) X10^3/uL RBC (4.5-5.9) X10^6/uL Hgb (13.5-17.5) g/dL Hct (41-53) % MCV (80-100) fL MCH (26-34) PG MCHC (30-36) % RDW (11.6-14.8) % Plt Count (150-400) X10^3/uL Neut % (Auto) (50-75) % Lymph % (Auto) (25-40) % Isabella % (Auto) (3-14) % Eos % (Auto) (2-4) % Baso % (Auto) (0-2) % Neut # (Auto) (7174-9264) /uL Lymph # (Auto) (8951-3848) /uL Isabella # (Auto) (0-900) /uL Eos # (Auto) (0-450) /uL Baso # (Auto) (0-100) /uL Sodium (137-145) mmol/L Potassium (3.4-5.1) mmol/L Chloride (98-107) mmol/L Carbon Dioxide (22-32) mmol/L BUN (9-20) mg/dL Creatinine (0.66-1.25) mg/dL Estimated GFR (>60) mL/min BUN/Creatinine Ratio (6-22) Glucose (80-110) mg/dL Calcium (8.4-10.2) mg/dL Magnesium (1.6-2.3) mg/dL Total Bilirubin (0.2-1.3) mg/dL AST (17-59) IU/L ALT (<50) IU/L Alkaline Phosphatase (38-126) U/L Total Creatine Kinase (55-170) U/L CK-MB (CK-2) CK-MB (CK-2) Rel Index Troponin I (0.01-0.034) ng/mL NT-Pro-B Natriuret Pep (<450) pg/mL Total Protein (6.3-8.2) g/dL Albumin (3.5-5.0) g/dL Globulin (1.7-4.1) g/dL Albumin/Globulin Ratio (1.0-2.8) Lipase (23-300) U/L TSH < 0.015 L (0.47-4.68) uIU/mL Imaging Data CT scan - head: Radiologist's Impression: Close Head CT (Signed) Hilario Peralta - 06/06/22 Chest X-Ray (Signed) Hilario Peralta - 06/06/22 Launch?Image [address] [address] [address] Scan Report Signed Patient: Fabrizio Griggs MR#: [id number] : 1940 Acct:[id number] Age/Sex: 81 / M Date of Service: 06/06/22 Loc: ED Accession Number: [id number] ?? Procedure: CT head/brain wo con Ordering Provider: Rubina Stevenson D.O. PROCEDURE:? CT HEAD/BRAIN WO CON ? INDICATIONS:? dizziness, intermittent ? TECHNIQUE:? Noncontrast 4.5 mm thick angled axial sections acquired from the foramen magnum to the vertex, with coronal and sagittal reformats.? For radiation dose reduction, the following was used:? automated exposure control, adjustment of mA and/or kV according to patient size.? ? COMPARISON:? [facility], CR, XR CHEST 1V, 06/06/2022, 11:09.? [facility], CT, CT HEAD/BRAIN WO CON, 09/29/2020, 12:40. ? FINDINGS:? Image quality:? Excellent.? ? CSF spaces:? Basal cisterns are patent.? No extra-axial fluid collections.? The ventricles are symmetric in size and shape.? ? Brain:? No intracranial bleeds or masses.? There is cerebral volume loss for age, with resultant ventricular and sulcal prominence.? There are periventricular and deep white matter chronic small vessel ischemic changes.? There is intracranial internal carotid artery atherosclerosis.? ? Skull and face:? Calvarium and visualized facial bones appear intact, without suspicious lesions.? ? Sinuses:? Visualized sinuses and mastoids are clear.? ? ? IMPRESSION:? Unremarkable intracranial study for age, stable from prior. ? ? Dictated by: Hilario Peralta M.D. on 06/06/2022 at 12:18 ? ? Approved by: Hilario Peralta M.D. on 06/06/2022 at 12:19?? Chest x-ray: Radiologist's Impression: [address] [address] Ultrasound Report Signed Patient: Mildred Negron MR#: [id number] : 12/19/1960 Acct:[id number] Age/Sex: 61 / F Date of Service: 06/06/22 Loc: ED Accession Number: [id number] ?? Procedure: periph venous up extrem lt Ordering Provider: Rubina Stevenson D.O. PROCEDURE:? US PERIPH VENOUS UP EXTREM LT ? INDICATIONS:? left upper arm swelling, suspected ca ? TECHNIQUE:? Real-time imaging, as well as color and pulse Doppler interrogation, was performed of the left upper extremity deep veins from the inferior neck to the antecubital fossa.? ? COMPARISON:? [facility], CT, CT ANGIO CHEST PE PROTOCOL, 06/06/2022, 12:03.? [facility], CT, CT ABDOMEN PELVIS W CON, 06/06/2022, 12:03.? [facility], CR, XR CHEST 1V, 06/06/2022, 11:15. ? FINDINGS:? Within the mid left subclavian vein, there is partially occlusive thrombus.? The vein itself appears partially compressed by in addition to solid soft tissue mass measuring 1.8 x 1.3 x 3.9 cm. ? No additional findings of left upper extremity deep venous thrombosis can be seen. ? No findings of superficial venous thrombosis are seen. ? ? IMPRESSION:? 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 ? 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 ? ? Dictated by: Hilario Peralta M.D. on 06/06/2022 at 11:43 ? ? Approved by: Hilario Peralta M.D. on 06/06/2022 at 11:44? ECG Data Attestation: I personally reviewed and interpreted this ECG as follows: Interpretation: Sinus rhythm rate of 64 TX 192 QRS of 134 QTC of 447. No acute ST elevation depression patient has right bundle branch block with prior EKG from 09/29/2020 with no acute changes today from prior. MDM Narrative Medical decision making narrative: This is an 81-year-old male who presents with complaint of dizziness that by his description is more orthostatic it is worse particularly with being bent over and suddenly standing he is not had any syncope, no new chest pain or shortness of breath and no new swelling of his extremities. He has had somewhat of an appropriate workup he is had EKG stress test, echo which found leaky aortic valve and he does have a systolic ejection murmur, he is unsure of the exact nature of the findings and I am unable to obtain these today from the [facility], patient also had a ZIO patch he has not received the results but has noted at home his heart rates occasionally into the 30s more often in the 40s with a normal baseline and 60 for him blood pressure typically runs around 130s 140s. He did have his medication changed from lisinopril to amlodipine in February although he would already had some symptoms prior to this. Plan for head CT as he describes may some mild vertigo symptoms although sounds much more like orthostatic hypotension, orthostatics today were positive in terms of 20 point drop in BP with no change in heart rate in the 50s to 60s. Lab work including CBC, CMP, troponin no acute change, BNP shows mild elevation. Chest x-ray shows no pulmonary edema or other change. Head CT is negative. EKG shows a right bundle-branch block which is unchanged. Patient continued to be monitored on telemetry. Patient's findings today were reviewed with him I would recommend if he is having more persistent symptoms follow-up with repeat echo, we discussed possibly holding his amlodipine patient would like to change back to lisinopril and I agree as this may be having some effect on his blood pressure and causing some orthostatic hypotension and following up his ZIO patch results. Patient and I discussed an Arb but he states that he was on these once before and had some issues with this as well. He prefers to try lisinopril and states it half doses blood pressure was controlled 10 mg and he did not have much cough. Patient and I discussed return precautions all questions answered. Discharge Plan Departure Patient Disposition: Home Clinical Impression: Dizziness, Orthostatic hypertension Instructions: DI for Dizziness-Nonvertigo Activity Restrictions/Additional Instructions: Please follow-up with your physician at the [facility] regarding your ZIO patch results. Let them know your findings and discuss if you need repeat echo. You may not depending on your ZIO patch results. Today you did have orthostatic hypotension and drop her blood pressure when you go from lying to standing position. I would recommend when moving from a bending to standing position or sitting to standing to move slowly and allow your body to equilibrate for several minutes. I would recommend stopping your amlodipine and returning to your lisinopril if you tolerate this well. Please return for new or worsening lightheadedness, passing out, increasing swelling your extremities, new chest pain or shortness of breath, persistent vomiting or other new or concerning symptoms. Prescriptions: No Action lisinopril 10 mg tablet 10 mg PO DAILY liothyronine [Cytomel] 25 mcg tablet 25 mcg PO DAILY triamcinolone acetonide 0.1 % cream 1 applic TOP TID Qty: 80 0RF multivitamin [Multiple Vitamins] 1 EACH tablet 1 tab PO QDAY Qty: 0 nortriptyline 25 MG capsule 25 mg PO HS Qty: 0 glucosamine sulfate-msm 1 EACH capsule 1 ea PO DAILY Qty: 0 Hyaluronic Acid (chond-collgn) 1 EACH capsule 1 ea PO DAILY Qty: 0 magnesium oxide 400 MG tablet 400 mg PO DAILY Qty: 0 calcium acetate(phosphat bind) 667 MG capsule 667 mg PO QDAY Qty: 0 zinc gluconate 50 MG tablet 50 mg PO DAILY Qty: 0 levothyroxine 200 mcg tablet 100 mcg PO QAM Qty: 0 Referrals: Miscellaneous,Doctor, MD [Primary Care Provider] - Visit Report Forms: Patient Portal/API
[2022-06-06 11:34] LABS: Add Manual Diff / Slide Review NO; Basophils Absolute Auto 100 /uL (0-100); Basophils Percent Auto 1.9 % (0-2); Eosinophils Absolute Auto 300 /uL (0-450); Eosinophils Percent Auto 5.2 % (2-4); Hematocrit 40.6 % (41-53); Hemoglobin 13.9 g/dL (13.5-17.5); Lymphocytes Absolute Auto 1500 /uL (1100-4500); Lymphocytes Percent Auto 25.6 % (25-40); Mean Corpuscular HGB Conc 34.1 % (30-36); Mean Corpuscular Hemoglobin 32.3 PG (26-34); Mean Corpuscular Volume 94.7 fL (80-100); Monocytes Absolute Auto 700 /uL (0-900); Monocytes Percent Auto 11.9 % (3-14); Neutrophils Absolute Auto 3100 /uL (1500-7000); Neutrophils Percent Auto 55.4 % (50-75); Platelet Count 218 X10^3/uL (150-400); Red Blood Cell Count 4.29 X10^6/uL (4.5-5.9); Red Cell Distribution Width 13.1 % (11.6-14.8); White Blood Cell Count 5.7 X10^3/uL (4.5-11.0)
[2022-06-06 11:44] LABS: Alanine Aminotransferase 19 IU/L (<50); Albumin Globulin Ratio 1.3 (1.0-2.8); Alkaline Phosphatase 66 U/L (38-126); Aspartate Aminotransferase 30 IU/L (17-59); BUN Creatinine Ratio 22.6 (6-22); Bilirubin Total 0.7 mg/dL (0.2-1.3); Blood Urea Nitrogen 14 mg/dL (9-20); Carbon Dioxide 28 mmol/L (22-32); Chloride 105 mmol/L (98-107); Creatine Kinase 50 U/L (55-170); Estimated Glomerular Filt Rate > 60 mL/min (>60); Globulin 3.1 g/dL (1.7-4.1); Glucose 95 mg/dL (80-110); HEMOLYSIS < 15 (0-50); Lipase 43 U/L (23-300); Magnesium 2.1 mg/dL (1.6-2.3); Potassium 4.3 mmol/L (3.4-5.1); Sodium 138 mmol/L (137-145); Total Protein 7.1 g/dL (6.3-8.2)
--- NOTE | 2022-06-06 11:48 | DI.CT.S_ITS ---
PROCEDURE: CT HEAD/BRAIN WO CON INDICATIONS: dizziness, intermittent TECHNIQUE: Noncontrast 4.5 mm thick angled axial sections acquired from the foramen magnum to the vertex, with coronal and sagittal reformats. For radiation dose reduction, the following was used: automated exposure control, adjustment of mA and/or kV according to patient size. COMPARISON: [facility], CR, XR CHEST 1V, 06/06/2022, 11:09. [facility], CT, CT HEAD/BRAIN WO CON, 09/29/2020, 12:40. FINDINGS: Image quality: Excellent. CSF spaces: Basal cisterns are patent. No extra-axial fluid collections. The ventricles are symmetric in size and shape. Brain: No intracranial bleeds or masses. There is cerebral volume loss for age, with resultant ventricular and sulcal prominence. There are periventricular and deep white matter chronic small vessel ischemic changes. There is intracranial internal carotid artery atherosclerosis. Skull and face: Calvarium and visualized facial bones appear intact, without suspicious lesions. Sinuses: Visualized sinuses and mastoids are clear. IMPRESSION: Unremarkable intracranial study for age, stable from prior. Dictated by: Hilario Peralta M.D. on 06/06/2022 at 12:18 Approved by: Hilario Peralta M.D. on 06/06/2022 at 12:19
[2022-06-06 11:55] LABS: Troponin I < 0.012 ng/mL (0.01-0.034)
[2022-06-06 11:56] LABS: NT-proBNP (BNP-Adult 18+) 578 pg/mL (<450)
[2022-06-06 12:41] LABS: Thyroid Stimulating Hormone < 0.015 uIU/mL (0.47-4.68)
== END 2022-06-06 15:25 | disposition home or self-care (01) ==
PROVIDERS: Emergency Provider Emergency Medicine
DX: I95.1 Orthostatic hypotension (principal); R42 Dizziness and giddiness; R07.9 Chest pain, unspecified
CPT/HCPCS: 70450; 71045; 80053; 82550; 83690; 83735; 83880; 84443; 84484; 85025; 93005; 99284

== ENCOUNTER → 2022-10-15 07:52 | Outpatient (CLI) | payer MEDICARE, SELFPAY ==
[2022-10-15 09:48] LABS: BUN Creatinine Ratio 29.9 (6-22); Blood Urea Nitrogen 20 mg/dL (9-20); Calcium 9.1 mg/dL (8.4-10.2); Carbon Dioxide 30 mmol/L (22-32); Chloride 103 mmol/L (98-107); Cholesterol 166 mg/dL (140-199); Estimated Glomerular Filt Rate > 60 mL/min (>60); Glucose 94 mg/dL (80-110); HDL Cholesterol 54 mg/dL (40-60); HEMOLYSIS < 15 (0-50); LDL Cholesterol Calculated 105 mg/dL (<100); Potassium 4.5 mmol/L (3.4-5.1); Sodium 139 mmol/L (137-145); Triglycerides 36 mg/dL (35-150)
[2022-10-15 10:04] LABS: Free T3, Triiodothyronine Free 5.95 pg/mL (2.77-5.27); Free T4, Direct Thyroxine 1.35 ng/dL (0.78-2.19)
[2022-10-15 10:19] LABS: Thyroid Stimulating Hormone < 0.015 uIU/mL (0.47-4.68)
[2022-10-15 10:23] LABS: Prostate Specific Antigen Scrn 1.15 ng/mL (0.1-4.0)
== END ==
PROVIDERS: PCP Internal Medicine; Referring Provider Internal Medicine; Visit Provider Internal Medicine
DX: Z12.5 Encounter for screening for malignant neoplasm of prostate (principal); E03.9 Hypothyroidism, unspecified; E78.2 Mixed hyperlipidemia; I10 Essential (primary) hypertension
CPT/HCPCS: 36415; 80048; 80061; 84439; 84443; 84481; G0103

== ENCOUNTER → 2023-02-01 09:06 | Outpatient (CLI) | payer MEDICARE, SELFPAY ==
--- NOTE | 2023-02-01 09:18 | DI.ECHO.S_ITS ---
Interpretation Summary Normal left ventricle size with ejection fraction 60-65%. The left atrium is moderately dilated. The right atrium is mildly dilated. Mild aortic stenosis. Moderate aortic regurgitation. Moderate mitral annular calcification. Mild tricuspid regurgitation. Comparison is made with the echocardiogram of 09/14/2019, valvular calcification has progressed. Procedure: A two-dimensional transthoracic echocardiogram with color flow and Doppler was performed. The study quality was technically adequate. Comparison is made with the echocardiogram of 09/14/2019. The patient was in normal sinus rhythm during the exam. Left Ventricle: The left ventricle is normal in size and wall thickness. The ejection fraction is estimated to be 60-65%. There are no focal wall motion abnormalities. Right Ventricle: The right ventricle is normal in size and function. Atria: The left atrium is moderately dilated. The right atrium is mildly dilated. There is no Doppler evidence for an interatrial shunt. Mitral Valve: The mitral valve leaflets appear mildly thickened, but open well. There is moderate mitral annular calcification. There is trace mitral regurgitation. Aortic Valve: The aortic valve is trileaflet. The aortic valve is mildly calcified. There is mild aortic stenosis. The peak aortic velocity is 3 m/sec. The aortic valve mean gradient is 26 mmHg. There is moderate aortic regurgitation. Tricuspid Valve: The tricuspid valve is normal in structure and function. There is mild tricuspid regurgitation. The right ventricular systolic pressure is estimated to be at least 31 mmHg based on an estimated right atrial pressure of 3 mm Hg. Pulmonic Valve: The pulmonic valve is not well visualized. There is no pulmonic valvular regurgitation. Great Vessels: The aortic root is normal size. The ascending aorta could not be visualized. The IVC is of normal diameter and collapses greater than 50% with a sniff. This suggests a low right atrial pressure of 3 mm Hg. Pericardium/ Pleura There is no pericardial effusion. There is no pleural effusion. MMode/2D Measurements & Calculations LVIDd: 4.5 cm LVOT diam: 1.8 cm LVIDs: 2.6 cm Ao root diam: 3.7 cm FS: 42.2 % IVSd: 1.1 cm LVPWd: 1.0 cm LV dexter. diameter/BSA (cm/m^2): 2.3 LV sys. diameter/BSA (cm/m^2): 1.3 LA A2 area: 26.7 cm2 RA long axis: 5.4 cm LA A4 area: 22.0 cm2 LA length (vol): 6.1 cm LA vol: 81.6 ml LA vol index: 42.1 ml/m2 RVD1 (basal): 4.3 cm LVLs ap4: 7.4 cm LVLd ap2: 7.9 cm TAPSE_phl: 2.8 cm LVLs ap2: 6.3 cm Doppler Measurements & Calculations Ao V2 max: 308.0 cm/sec LVOT Max Óscar: 210.0 cm/sec Ao V2 mean: 245.0 cm/sec LV V1 max P.6 mmHg Ao max P.9 mmHg LV V1 VTI: 48.6 cm Ao mean P.0 mmHg JORGITO(I,D): 1.6 cm2 Ao V2 VTI: 75.0 cm JORGITO(V,D): 1.7 cm2 sev ratio: 0.65 JORGITO indexed to BSA (cm^2/m^2): 0.85 AI P1/2t: 435.4 msec AI dec slope: 294.0 cm/sec2 MV E max óscar: 140.0 cm/sec TR max óscar: 263.0 cm/sec MV A max óscar: 151.0 cm/sec TR max P.7 mmHg MV E/A: 0.93 PA V2 max: 93.3 cm/sec Med Peak E' Óscar: 6.3 cm/sec PA V2 mean: 66.6 cm/sec E/E' med: 22.3 PA mean P.0 mmHg Lat Peak E' Óscar: 9.2 cm/sec PA pr(Accel): 33.1 mmHg E/E' lat: 15.2 E/e' average: 18.7 MV dec time: 0.36 sec SV(LVOT): 123.7 ml AV P1/2t-pr_phl: 558.0 msec AV VR_phl: 0.68 JORGITO(VTI)/BSA_phl: 0.91 MV P1/2t-pr_phl: 106.0 msec Electronically signed by: Tristan Andrews on Reading Physician:02/01/2023 03:43 PM
== END ==
PROVIDERS: PCP Internal Medicine; Referring Provider Internal Medicine; Visit Provider Internal Medicine
DX: I08.3 Combined rheumatic disorders of mitral, aortic and tricuspid valves
CPT/HCPCS: 93306

== ENCOUNTER → 2023-02-11 07:18 | Outpatient (CLI) | payer MEDICARE, SELFPAY ==
[2023-02-11 08:34] LABS: Mean Corpuscular HGB Conc 34.3 % (30-36); Mean Corpuscular Hemoglobin 32.7 PG (26-34); Mean Corpuscular Volume 95.2 fL (80-100); Platelet Count 202 X10^3/uL (150-400); Red Blood Cell Count 3.99 X10^6/uL (4.5-5.9); Red Cell Distribution Width 13.1 % (11.6-14.8); White Blood Cell Count 5.2 X10^3/uL (4.5-11.0)
[2023-02-11 09:17] LABS: Alanine Aminotransferase 21 IU/L (<50); Albumin 3.5 g/dL (3.5-5.0); Albumin Globulin Ratio 1.3 (1.0-2.8); Alkaline Phosphatase 65 U/L (38-126); Aspartate Aminotransferase 28 IU/L (17-59); BUN Creatinine Ratio 26.9 (6-22); Bilirubin Total 0.4 mg/dL (0.2-1.3); Blood Urea Nitrogen 18 mg/dL (9-20); Calcium 8.8 mg/dL (8.4-10.2); Carbon Dioxide 29 mmol/L (22-32); Chloride 106 mmol/L (98-107); Estimated Glomerular Filt Rate > 60 mL/min (>60); Globulin 2.6 g/dL (1.7-4.1); Glucose 96 mg/dL (80-110); HEMOLYSIS < 15 (0-50); Sodium 140 mmol/L (137-145); Total Protein 6.1 g/dL (6.3-8.2)
[2023-02-11 09:19] LABS: NT-proBNP (BNP-Adult 18+) 1000 pg/mL (<450)
[2023-02-11 09:41] LABS: TSH w/ Reflex to FT4 < 0.02 uIU/mL (0.47-4.68)
[2023-02-11 10:22] LABS: Free T4, Direct Thyroxine 1.59 ng/dL (0.78-2.19)
== END ==
PROVIDERS: PCP Internal Medicine; Referring Provider Internal Medicine; Visit Provider Internal Medicine
DX: I10 Essential (primary) hypertension (principal); I35.1 Nonrheumatic aortic (valve) insufficiency; E03.9 Hypothyroidism, unspecified; I50.30 Unspecified diastolic (congestive) heart failure; I50.9 Heart failure, unspecified
CPT/HCPCS: 36415; 80053; 83880; 84439; 84443; 85027

== ENCOUNTER → 2023-02-16 09:22 | Outpatient (CLI) | payer MEDICARE, SELFPAY ==
--- NOTE | 2023-02-17 10:50 | PM.PFT.1 ---
Pulmonary Function Test Referral & Results Date Patient Seen: 02/16/23 Results: The spirometry demonstrates an FVC of 3.02 L which is 74% of predicted. The FEV1 was measured at 2.35 L which is 82% of predicted. The FEV1/FVC ratio was 78 which is 109% of predicted. Following the administration of bronchodilator there was a 29% improvement in FEF 25-75%. Lung volumes show an SVC of 3.32 L which is 73% of predicted. The diffusing capacity was measured at 21.67 which is 64% of predicted. No hemoglobin value was provided, so no correction for potential anemia could be made, if appropriate. The maximum voluntary ventilation was normal Interpretation: This study demonstrates possibly mild obstructive lung disease based on reduction FEV1 although FEV1/FVC ratio is preserved. There is some limited evidence of benefit following bronchodilator administration particularly small airway flow as noted above based on improvement in FEF 25-75%. There is a aayf-ih-ytetzips reduction in lung volumes suggesting the presence of vdan-ig-cphkvfxj restrictive lung disease which may explain the abnormality in the FEV1 above There is a tpvf-rh-fqxthizj reduction diffusing capacity as well suggesting the presence of disease at the capillary alveolar level Clinical correlation suggested
== END ==
PROVIDERS: PCP Internal Medicine; Referring Provider Internal Medicine; Visit Provider Internal Medicine
DX: R06.09 Other forms of dyspnea (principal); Z87.891 Personal history of nicotine dependence; J98.8 Other specified respiratory disorders
CPT/HCPCS: 94060; 94726; 94729

== ENCOUNTER → 2023-02-22 16:43 | Outpatient (CLI) | payer MEDICARE, SELFPAY ==
[2023-02-22 17:20] LABS: Appearance Urine UA CLEAR; Bilirubin Urine UA NEGATIVE (NEGATIVE); Color Urine UA YELLOW; Glucose Urine UA NEGATIVE (Negative); Ketones Urine UA NEGATIVE (NEGATIVE); Leukocyte Esterase Urine UA NEGATIVE (NEGATIVE); Nitrite Urine UA NEGATIVE (Negative); Occult Blood Urine UA NEGATIVE (Negative); Protein Urine UA NEGATIVE (Negative); Urobilinogen Urine UA 0.2 E.U./dL (0.2)
[2023-02-22 17:39] LABS: Bacteria Urine Occasional (0-1); Hyaline Casts Urine 1-5/LPF; RBC Urine None Seen (0-5/HPF); WBC Urine None Seen (0-5/HPF)
[2023-02-22 17:40] LABS: Culture Indicated Urine Cult Not Indicated
== END ==
PROVIDERS: PCP Internal Medicine; Referring Provider Internal Medicine; Visit Provider Internal Medicine
DX: R80.9 Proteinuria, unspecified (principal)
CPT/HCPCS: 81001

== ENCOUNTER → 2023-10-19 07:16 | Outpatient (CLI) | payer OTHER, SELFPAY ==
[2023-10-19 08:24] LABS: Aspartate Aminotransferase 29 IU/L (17-59); BUN Creatinine Ratio 23.9 (6-22); Blood Urea Nitrogen 17 mg/dL (9-20); Calcium 9.2 mg/dL (8.4-10.2); Carbon Dioxide 26 mmol/L (22-32); Chloride 106 mmol/L (98-107); Cholesterol 150 mg/dL (140-199); Estimated Glomerular Filt Rate > 60 mL/min (>60); Glucose 89 mg/dL (80-110); HDL Cholesterol 43 mg/dL (40-60); HEMOLYSIS < 15 (0-50); LDL Cholesterol Calculated 99 mg/dL (<100); Potassium 4.1 mmol/L (3.4-5.1); Sodium 139 mmol/L (137-145); Triglycerides 42 mg/dL (35-150)
[2023-10-19 08:49] LABS: Prostate Specific Antigen 1.15 ng/mL (0.10-4.00)
[2023-10-19 08:59] LABS: TSH w/ Reflex to FT4 < 0.02 uIU/mL (0.47-4.68)
== END ==
PROVIDERS: PCP Internal Medicine; Referring Provider Internal Medicine; Visit Provider Internal Medicine
DX: E03.9 Hypothyroidism, unspecified (principal); N40.1 Benign prostatic hyperplasia with lower urinary tract symptoms; E78.2 Mixed hyperlipidemia; N13.8 Other obstructive and reflux uropathy
CPT/HCPCS: 36415; 80048; 80061; 84153; 84439; 84443; 84450; 84481

== ENCOUNTER 2023-11-04 16:18 | Emergency (ER) | payer OTHER, SELFPAY ==
[2023-11-04] VITALS (11 sets, daily range): BP systolic 140–164; BP diastolic 63–74; PULSE 59–66; RESP 14–20; TEMP 36.9; O2SAT 96–100; BMI 22.3
--- NOTE | 2023-11-04 16:31 | DI.RAD.S_ITS ---
PROCEDURE: XR CHEST 1V INDICATIONS: chest pain TECHNIQUE: One view of the chest was acquired. COMPARISON: [facility], [place], XR CHEST 1V, 06/06/2022, 11:09. [facility], , CHEST 1 VIEW, 10/19/2015, 15:24. FINDINGS: Surgical changes and devices: None. Lungs and pleura: Lungs are clear. No pleural effusions or pneumothorax. Left basilar atelectasis. Mediastinum: Mediastinal contours appear normal. Heart size is normal. Bones and chest wall: No suspicious bony lesions. Overlying soft tissues appear unremarkable. Prominent right-sided nipple shadow. IMPRESSION: No acute cardiopulmonary abnormality is seen. Dictated by: Ace Roblero M.D. on 11/04/2023 at 16:57 Approved by: Ace Roblero M.D. on 11/04/2023 at 16:58
[2023-11-04 17:43] LABS: Add Manual Diff / Slide Review NO; Basophils Absolute Auto 0 /uL (0-100); Basophils Percent Auto 0.5 % (0-2); Eosinophils Absolute Auto 200 /uL (0-450); Eosinophils Percent Auto 3.1 % (2-4); Hematocrit 40.8 % (41-53); Lymphocytes Absolute Auto 1900 /uL (1100-4500); Lymphocytes Percent Auto 25.7 % (25-40); Mean Corpuscular HGB Conc 34.3 % (30-36); Mean Corpuscular Hemoglobin 32.5 PG (26-34); Mean Corpuscular Volume 94.9 fL (80-100); Monocytes Absolute Auto 700 /uL (0-900); Monocytes Percent Auto 9.6 % (3-14); Neutrophils Absolute Auto 4500 /uL (1500-7000); Neutrophils Percent Auto 61.1 % (50-75); Platelet Count 227 X10^3/uL (150-400); Red Cell Distribution Width 13.9 % (11.6-14.8); White Blood Cell Count 7.3 X10^3/uL (4.5-11.0)
[2023-11-04 17:50] LABS: INR 0.9 (0.9-1.3); Prothrombin Time 10.7 SECONDS (9.4-12.5)
[2023-11-04 17:53] LABS: PTT Partial Thromboplastin Tim 28 SECONDS (25.1-36.5)
[2023-11-04 18:01] LABS: Alanine Aminotransferase 24 IU/L (<50); Albumin 4.2 g/dL (3.5-5.0); Albumin Globulin Ratio 1.4 (1.0-2.8); Alkaline Phosphatase 64 U/L (38-126); Aspartate Aminotransferase 35 IU/L (17-59); BUN Creatinine Ratio 26.6 (6-22); Bilirubin Total 0.5 mg/dL (0.2-1.3); Blood Urea Nitrogen 17 mg/dL (9-20); Calcium 9.4 mg/dL (8.4-10.2); Carbon Dioxide 27 mmol/L (22-32); Chloride 104 mmol/L (98-107); Creatine Kinase 68 U/L (55-170); Estimated Glomerular Filt Rate > 60 mL/min (>60); Globulin 3.1 g/dL (1.7-4.1); Glucose 87 mg/dL (80-110); HEMOLYSIS 23 (0-50); Lipase 54 U/L (23-300); Potassium 3.6 mmol/L (3.4-5.1); Sodium 141 mmol/L (137-145); Total Protein 7.3 g/dL (6.3-8.2)
[2023-11-04 18:13] LABS: Troponin I 0.032 ng/mL (0.01-0.034)
--- NOTE | 2023-11-04 19:00 | DI.CT.S_ITS ---
PROCEDURE: CT HEAD/BRAIN WO CON INDICATIONS: VERTIGO S/P GLF TECHNIQUE: Noncontrast 4.5 mm thick angled axial sections acquired from the foramen magnum to the vertex, with coronal and sagittal reformats. For radiation dose reduction, the following was used: automated exposure control, adjustment of mA and/or kV according to patient size. COMPARISON: [facility], CT, CT HEAD/BRAIN WO CON, 06/06/2022, 13:03. FINDINGS: Image quality: Diagnostic. CSF spaces: Basal cisterns are patent. No extra-axial fluid collections. The ventricles are symmetric in size and shape. Brain: No intracranial bleeds or masses. There is cerebral volume loss for age, with resultant ventricular and sulcal prominence. There are periventricular and deep white matter chronic small vessel ischemic changes. There is intracranial internal carotid artery atherosclerosis. Skull and face: Calvarium and visualized facial bones appear intact, without suspicious lesions. Sinuses: Visualized sinuses and mastoids are clear. IMPRESSION: 1. No acute intracranial abnormalities. 2. Cerebral volume loss and chronic microvascular ischemic changes. Dictated by: Park Echols M.D. on 11/04/2023 at 20:24 Approved by: Park Echols M.D. on 11/04/2023 at 20:25
--- NOTE | 2023-11-04 19:00 | DI.CT.S_ITS ---
PROCEDURE: CT ANGIO HEAD AND NECK INDICATIONS: VERTIGO TECHNIQUE: After the administration of intravenous contrast, 1 mm thick sections acquired from the aortic arch through the [place] of [place]. 3-dimensional tvmlyjq-vsrkmyxnb-syrqafmrrq (MIP) and/or volume rendering reformats were acquired of the central intracranial vasculature and neck separately. For radiation dose reduction, the following was used: automated exposure control, adjustment of mA and/or kV according to patient size. COMPARISON: [facility], CT, CT HEAD/BRAIN WO CON, 11/04/2023, 19:46. [facility], CT, CT HEAD/BRAIN WO CON, 06/06/2022, 13:03. FINDINGS: Image quality: Diagnostic. BRAIN: CSF spaces: Ventricles are normal in size and shape. Basal cisterns are patent. No extra-axial fluid collections. Brain: No significant abnormality of the brain can be seen. Skull and face: Calvarium and facial bones appear intact, without suspicious lesions. Orbits appear normal. Sinuses: Sinuses and mastoids are clear. HEAD CT ANGIOGRAPHY: Anterior circulation: Intracranial internal carotid arteries are normal in size and flow. There are calcified plaques at the cavernous segment of the internal carotid arteries bilaterally. The flow within the paired anterior cerebral arteries is normal and symmetric. The flow within the middle cerebral arteries is normal and symmetric. The anterior communicating artery is seen. No aneurysms are seen. Posterior circulation: Visualized portions of the vertebral arteries demonstrate normal caliber, and join to form a normal appearing basilar artery. Flow within the posterior cerebral arteries is normal and symmetric. No aneurysms are seen. NECK CT ANGIOGRAPHY: Carotid system: The great vessels demonstrate a conventional anatomy as they arise from the aortic arch. The origins of the common carotid arteries appear patent. The common carotid arteries demonstrate normal caliber and courses. The bifurcation regions are both widely patent. Calcified plaques at the carotid bifurcations bilaterally. The internal carotid arteries demonstrate normal calibers and courses. Posterior circulation: The origins of the vertebral arteries both appear widely patent. The more superior extracranial portions of both vertebral arteries also demonstrate normal courses and calibers. They join to form a normal appearing basilar artery. Soft tissues: Visualized neck soft tissues demonstrate no suspicious abnormalities. Bones: No suspicious bony lesions. Visualized cervical spine appears normally aligned. IMPRESSION: No significant intracranial arterial abnormality is seen. No significant abnormality is seen within the arteries of the neck. Any quantitative measurements of stenosis were performed using NASCET criteria. Dictated by: Park Echols M.D. on 11/04/2023 at 20:36 Approved by: Park Echols M.D. on 11/04/2023 at 20:43
--- NOTE | 2023-11-04 19:01 | ED_ITS ---
HPI - Dizziness General Chief Complaint: Dizziness Stated Complaint: bout of vertigo, medics sent him to ED Time Seen by Provider: 11/04/23 17:58 Source: patient Mode of arrival: Ambulatory History of Present Illness HPI Narrative: 83yoF with PMH HTN, aortic regurgitation presents by private vehicle for vertigo. Patient states that he was skiing on [facility] when he fell, falling forwards. After getting up patient noticed that everything was spinning. He was evaluated by medics at [facility], who called an ER doctor at [facility], who recommended he be evaluated in the emergency department. Patient stated he did not want to go to [place] and so he was counseled to go to the emergency department when he got home. Patient states he had vertigo once several years ago, it was evaluated by his primary care doctor who told him it was benign and he has not had an issue since. Denies numbness, weakness, tingling. He drove himself to the emergency department. Related Data Home Medications Medication Instructions Recorded Confirmed multivitamin (Multiple Vitamins 1 tab PO QDAY ##0 12/16/16 10/06/23 tablet) nortriptyline 25 mg capsule 25 mg PO HS ##0 12/16/16 10/06/23 hnzknbf-vtanzkxqr-fodv 333 mg-133 tab PO 06/18/22 10/06/23 mg-5 mg tablet coenzyme Q10 100 mg capsule (Co 100 mg PO DAILY 06/18/22 10/06/23 Q-10) glucosamine izj-lrxybuihku-vcd 1 cap PO DAILY 06/18/22 10/06/23 prasterone (dhea) 50 mg tablet 50 mg PO DAILY 06/18/22 10/06/23 (DHEA) vitamin K2 40 mcg tablet 40 mcg PO DAILY 06/18/22 10/06/23 cholecalciferol (vitamin D3) 25 25 mcg PO DAILY 09/23/22 10/06/23 mcg (1,000 unit) capsule Amino balance 1 cap PO DAILY 01/04/23 10/06/23 hyaluronic acid 50 mg PO DAILY 01/04/23 10/06/23 mecobalamin (vitamin B12) 500 mcg 500 mcg PO DAILY 01/04/23 10/06/23 chewable tablet selenium 100 mcg tablet 100 mcg PO DAILY 01/04/23 10/06/23 zinc sulfate [Zinc-25] 1 cap PO DAILY 01/04/23 10/06/23 Previous Rx's Medication Instructions Recorded torsemide 20 mg tablet 20 mg PO DAILY #30 tabs 02/12/23 albuterol sulfate 90 mcg/actuation 2 puff inhalation Q6H PRN 02/22/23 aerosol inhaler shortness of breath or wheezing #8.5 grams levothyroxine 175 mcg tablet 175 mcg PO DAILY #90 tabs 06/17/23 liothyronine 25 mcg tablet 25 mcg PO DAILY #90 tabs 07/08/23 (Cytomel) lisinopril 20 mg tablet 20 mg PO DAILY #90 tabs 10/06/23 meclizine 25 mg tablet 25 mg PO TID PRN dizziness #30 tabs 11/04/23 Allergies Allergy/AdvReac Type Severity Reaction Status Date / Time No Known Drug Allergies Allergy Verified 10/06/23 10:36 Review of Systems Review of Systems Narrative: Negative except as noted above Patient History Medical History (Updated 11/04/23 @ 20:52 by Rubina Potter MD) History of melanoma Reactive airway disease Ganglion cyst of finger of right hand Do not resuscitate Depression Mumps Measles Tinnitus (~1961) Hearing loss (~1961) Cataracts, bilateral Primary osteoarthritis involving multiple joints (~2009) History of colonic polyps Osteopenia Ocular migraine Aortic regurgitation Acquired hypothyroidism Mixed hyperlipidemia Essential hypertension Surgical History Anesthesia S/P TURP History of knee surgery (~2017) Family History Father History of heart disease Mother Depression Grandmother Congestive heart failure Social History details: (Rosmery - has dementia) household members: spouse Smoking Status: Never smoker Smoking Status: Never smoker alcohol intake frequency: 0-2 drinks per day Substance Use Type: does not use Exam Initial Vital Signs Initial Vital Signs: Vital Signs Temperature 98.5 F 11/04/23 16:23 Pulse Rate 66 11/04/23 16:23 Respiratory Rate 18 11/04/23 16:23 Blood Pressure 158/74 H 11/04/23 16:23 Pulse Oximetry 97 01/25/24 16:23 Oxygen Delivery Method Room Air 11/04/23 16:23 Const: Awake, alert, no acute distress, nontoxic appearing Eyes: PERRL, EOMI, conjunctiva normal, no nystagmus ENT: TM normal bilaterally Cardiac: regular rate, regular rhythm RESP: unlabored, clear bilaterally, no wheezing GI: Atraumatic, soft, nontender, nondistended, no rebound, no guarding MSK: Atraumatic, full range of motion, pulses equal Skin: Warm, Dry, intact, no rashes Neuro: AO x3, CN II-XII grossly intact, moves all extremities, gait normal Psych: affect normal, mood normal, not suicidal, not homicidal Course Orders Ordered: Discontinued Medications Sodium Chloride (Normal Saline 0.9%) 1,000 mls @ 1,000 mls/hr IV BOLUS ONE Stop: 11/04/23 20:00 Last Infusion: 11/04/23 20:49 Dose: Infused Documented By: Admin: 11/04/23 19:10 Dose: 1,000 mls/hr Documented By: Meclizine HCl (Meclizine Hcl 12.5 Mg Tablet) 50 mg PO NOW ONE Stop: 11/04/23 19:02 Last Admin: 11/04/23 19:10 Dose: 50 mg Documented By: Vital Signs Vital signs: Vital Signs - 8 hr 11/04/23 20:30 11/04/23 20:30 Pulse Rate 62 Respiratory Rate 14 Blood Pressure 161/72 H Pulse Oximetry 99 Oxygen Delivery Method Room Air MDM - Dizziness Differential Diagnosis Differential diagnosis: Likely benign paroxysmal positional vertigo, orthostatic hypotension and vertebral basilar insufficiency Lab Data 11/04/23 16:43 11/04/23 16:43 Labs: Lab Results 11/04/23 Range/Units 16:43 WBC 7.3 (4.5-11.0) X10^3/uL RBC 4.30 L (4.5-5.9) X10^6/uL Hgb 14.0 (13.5-17.5) g/dL Hct 40.8 L (41-53) % MCV 94.9 (80-100) fL MCH 32.5 (26-34) PG MCHC 34.3 (30-36) % RDW 13.9 (11.6-14.8) % Plt Count 227 (150-400) X10^3/uL Neut % (Auto) 61.1 (50-75) % Lymph % (Auto) 25.7 (25-40) % [place] % (Auto) 9.6 (3-14) % Eos % (Auto) 3.1 (2-4) % Baso % (Auto) 0.5 (0-2) % Neut # (Auto) 4500 (1822-3997) /uL Lymph # (Auto) 1900 (8589-0274) /uL [place] # (Auto) 700 (0-900) /uL Eos # (Auto) 200 (0-450) /uL Baso # (Auto) 0 (0-100) /uL PT 10.7 (9.4-12.5) SECONDS INR 0.9 (0.9-1.3) APTT 28 (25.1-36.5) SECONDS Sodium 141 (137-145) mmol/L Potassium 3.6 (3.4-5.1) mmol/L Chloride 104 (98-107) mmol/L Carbon Dioxide 27 (22-32) mmol/L BUN 17 (9-20) mg/dL Creatinine 0.64 L (0.66-1.25) mg/dL Estimated GFR > 60 (>60) mL/min BUN/Creatinine Ratio 26.6 H (6-22) Glucose 87 (80-110) mg/dL Calcium 9.4 (8.4-10.2) mg/dL Magnesium 2.0 (1.6-2.3) mg/dL Total Bilirubin 0.5 (0.2-1.3) mg/dL AST 35 (17-59) IU/L ALT 24 (<50) IU/L Alkaline Phosphatase 64 (38-126) U/L Total Creatine Kinase 68 (55-170) U/L Troponin I 0.032 (0.01-0.034) ng/mL Total Protein 7.3 (6.3-8.2) g/dL Albumin 4.2 (3.5-5.0) g/dL Globulin 3.1 (1.7-4.1) g/dL Albumin/Globulin Ratio 1.4 (1.0-2.8) Lipase 54 (23-300) U/L MDM Narrative Medical decision making narrative: Vertigo after ground level fall while skiing. Patient did drive himself to the emergency department, he is currently resting comfortably in ED bed. No focal neurologic deficit, NIH of 0. We will give meclizine and we will order labs and CT imaging. Laboratory work is reviewed, no significant abnormalities identified. Noncontrast head CT shows no acute findings, CT angiography shows no stenosis or intracranial arterial abnormality. Patient reports improvement in symptoms after meclizine and is ambulatory around the emergency department without difficulty. Based on patient's description of symptoms as well as onset of timing with normal ED workup this is likely to be peripheral. Patient advised to follow up closely with his primary care physician if he continues to experience episodes of vertigo. Meclizine sent to pharmacy of choice. Discharge Plan Departure Patient Disposition: Home Clinical Impression: Vertigo Instructions: DI for Vertigo, How to Perform Girma Maneuver Prescriptions: New meclizine 25 mg tablet 25 mg PO TID PRN (Reason: dizziness) Qty: 30 0RF No Action multivitamin [Multiple Vitamins] 1 EACH tablet 1 tab PO QDAY Qty: 0 nortriptyline 25 MG capsule 25 mg PO HS Qty: 0 torsemide 20 mg tablet 20 mg PO DAILY Qty: 30 0RF liothyronine [Cytomel] 25 mcg tablet 25 mcg PO DAILY Qty: 90 3RF pxvcyyr-deaqurmbu-jwuy 333-133-5 mg tablet PO DHEA 50 mg tablet 50 mg PO DAILY coenzyme Q10 [Co Q-10] 100 mg capsule 100 mg PO DAILY vitamin K2 40 mcg tablet 40 mcg PO DAILY glucosamine eiq-pdiwnufynq-pqa 1 cap PO DAILY cholecalciferol (vitamin D3) 25 mcg (1,000 unit) capsule 25 mcg PO DAILY lisinopril 20 mg tablet 20 mg PO DAILY Qty: 90 3RF Amino balance 1 cap PO DAILY hyaluronic acid 50 mg PO DAILY mecobalamin (vitamin B12) 500 mcg tablet,chewable 500 mcg PO DAILY zinc sulfate [Zinc-25] 1 cap PO DAILY selenium 100 mcg tablet 100 mcg PO DAILY albuterol sulfate 90 mcg/actuation HFA aerosol inhaler 2 puff inhalation Q6H PRN (Reason: shortness of breath or wheezing) Qty: 8.5 5RF levothyroxine 175 mcg tablet 175 mcg PO DAILY Qty: 90 3RF Referrals: Aguilar Mc MD [Primary Care Provider] - Stand Alone Forms: Patient Portal/API
[2023-11-04] MEDS: SODIUM CHLORIDE 0.9% 1,000 ML 1000 ML IV (19:10)
[2023-11-04] MEDS: MECLIZINE HCL 12.5 MG TABLET 50 MG PO (19:10)
== END 2023-11-04 21:20 | disposition home or self-care (01) ==
PROVIDERS: Emergency Medicine; Emergency Provider Emergency Medicine; PCP Internal Medicine
DX: R42 Dizziness and giddiness (principal); R07.9 Chest pain, unspecified; V00.321A Fall from snow-skis, initial encounter
CPT/HCPCS: 36415; 70450; 70496; 70498; 71045; 80053; 82550; 83690; 83735; 84484; 85025; 85610; 85730; 93005; 96360; 96361; 99284; 99285

== ENCOUNTER → 2024-06-08 13:03 | Outpatient (CLI) | payer MEDICARE, SELFPAY ==
--- NOTE | 2024-06-08 | DI.RAD.S_ITS ---
PROCEDURE: XR FOOT RT MIN 3V INDICATIONS: Pain in right foot TECHNIQUE: 3 views of the foot were acquired. COMPARISON: None. FINDINGS: Bones: No fractures or dislocations. No suspicious bony lesions. There is some moderate osteoarthritic type degenerative change involving the PIP joints. Soft tissues: No tibiotalar joint effusion. Achilles tendon appears normal. IMPRESSION: 1. No evidence for acute osseous abnormality involving the right foot. 2. Moderate osteoarthritic degenerative change involving the PIP joints. Dictated by: Oh Campbell M.D. on 06/08/2024 at 14:54 Approved by: Oh Campbell M.D. on 06/08/2024 at 14:56
== END ==
PROVIDERS: PCP Internal Medicine; Referring Provider Podiatrist Foot & Ankle Surgery; Visit Provider Podiatrist Foot & Ankle Surgery
DX: M79.671 Pain in right foot (principal)
CPT/HCPCS: 73630

== ENCOUNTER → 2024-11-21 15:57 | Outpatient (CLI) | payer MEDICARE, SELFPAY ==
[2024-11-21 17:00] LABS: Hematocrit 38.8 % (41-53); Hemoglobin 13.2 g/dL (13.5-17.5); Mean Corpuscular HGB Conc 33.9 % (30-36); Mean Corpuscular Hemoglobin 32.9 PG (26-34); Mean Corpuscular Volume 97.1 fL (80-100); Platelet Count 210 X10^3/uL (150-400); Red Cell Distribution Width 12.7 % (11.6-14.8); White Blood Cell Count 5.8 X10^3/uL (4.5-11.0)
[2024-11-21 17:17] LABS: Alanine Aminotransferase 20 IU/L (<50); Albumin 4.3 g/dL (3.5-5.0); Alkaline Phosphatase 78 U/L (38-126); Aspartate Aminotransferase 32 IU/L (17-59); BUN Creatinine Ratio 24.7 (6-22); Bilirubin Total 0.6 mg/dL (0.2-1.3); Blood Urea Nitrogen 18 mg/dL (9-20); Calcium 9.7 mg/dL (8.4-10.2); Carbon Dioxide 30 mmol/L (22-32); Chloride 103 mmol/L (98-107); Estimated Glomerular Filt Rate > 60 mL/min (>60); Globulin 2.3 g/dL (1.7-4.1); Glucose 85 mg/dL (80-110); HEMOLYSIS < 15 (0-50); Potassium 4.2 mmol/L (3.4-5.1); Sodium 137 mmol/L (137-145); Total Protein 6.6 g/dL (6.3-8.2)
[2024-11-21 17:18] LABS: Albumin Globulin Ratio 1.9 (1.0-2.8); Cholesterol 158 mg/dL (140-199); HDL Cholesterol 52 mg/dL (40-60); LDL Cholesterol Calculated 97 mg/dL (<100); Triglycerides 47 mg/dL (35-150)
[2024-11-21 17:49] LABS: Prostate Specific Antigen 1.16 ng/mL (0.10-4.00); TSH w/ Reflex to FT4 < 0.02 uIU/mL (0.47-4.68)
== END ==
PROVIDERS: PCP Internal Medicine; Referring Provider Internal Medicine; Visit Provider Internal Medicine
DX: E78.2 Mixed hyperlipidemia (principal)
CPT/HCPCS: 36415; 80053; 80061; 84153; 84439; 84443; 85027